=== PATIENT | male | born 1980 | race Caucasian/White ===

== ENCOUNTER 2016-10-17 12:45 | Emergency (ER) | payer SELFPAY ==
[~2016-10-17] VITALS: Ht 175.3 cm; Wt 80.0 kg
[2016-10-17 12:55] VITALS: BP 144/82; PULSE 78; RESP 15; TEMP 98.1; O2SAT 99
[2016-10-17] MEDS ORDERED: DEXAMETHASONE SOD PHOS 4 MG/ML VIAL IM ONE (13:15)
--- NOTE | 2016-10-17 13:19 | PD ---
HPI Chief Complaint: Pain: Acute or Chronic Time Seen by Provider: 13:15 Travel History International Travel<30 days: No Contact w/Intl Traveler<30days: No Traveled to known affect area: No History of Present Illness HPI Patient comes in complaining of right-sided low back pain that began 3 days ago while playing around on monkey bars. Patient denies any direct trauma, fevers, loss or change in bowel or bladder, numbness, or IV drug use. Patient has been using [id number] medicine as well as taking a friends pain pill for symptomatic relief. Pain is worse with certain movement. It radiates down his right lower extremity causing a tingling sensation from time to time. Pain is worse at night. PFSH Past Medical History Anxiety: Yes Depression: Yes Cancer: No Cardiovascular Problems: No Diabetes: No Diminished Hearing: No Endocrine: No Genitourinary: No Headaches: Yes Immune Disorder: No Musculoskeletal: No Neurologic: Yes Psychiatric: Yes Reproductive: No Respiratory: No Immunizations Current: Yes Migraines: Yes Past Surgical History Other Surgery: No Social History Alcohol Use: Yes (8 (16 oz beers daily).) Tobacco Use: Yes Substance Use: No (Denies) Allergies-Medications (Allergen,Severity, Reaction): Coded Allergies: Penicillin (Verified Allergy, Severe, Hives, 10/17/16) Codeine (Verified Adverse Reaction, Severe, N/V, 10/17/16) Reported Meds & Prescriptions Reported Meds & Active Scripts Active Robaxin (Methocarbamol) 500 Mg Tab 500 Mg PO Q8HR PRN Medrol Dosepak (Methylprednisolone) 4 Mg Dspk 4 Mg PO DIRECTED Per Pharmacist direction Review of Systems Except as stated in HPI: all other systems reviewed are Neg Physical Exam Narrative GENERAL: Well-developed, well nourished, in no acute distress, and non-ill appearing. SKIN: Warm and dry. HEAD: Atraumatic. Normocephalic. EYES: Pupils equal and round. EOMI. No scleral icterus. No injection or drainage. ENT: No nasal bleeding or discharge. Mucous membranes pink and moist. NECK: Trachea midline. Supple. No nuclear rigidity. RESPIRATORY: No accessory muscle use. No respiratory distress. GASTROINTESTINAL: Abdomen soft, non-tender, nondistended. Hepatic and splenic margins not palpable. No pulsatile mass. MUSCULOSKELETAL: No obvious deformities. No clubbing. No cyanosis. No edema. Full range of motion. No tenderness or crepitus or midline lumbar spine. Straight leg test negative bilaterally. NEUROLOGICAL: Awake and alert. No obvious cranial nerve deficits. Motor grossly within normal limits. Normal speech. PSYCHIATRIC: Appropriate mood and affect; insight and judgment normal. Data Data Last Documented VS Vital Signs Date Time Temp Pulse Resp B/P Pulse Ox O2 Delivery O2 Flow Rate FiO2 10/17/16 12:55 98.1 78 15 144/82 99 Orders Dexamethasone Inj (Decadron Inj) (10/17/16 13:15) [facility] Medical Decision Making Medical Screen Exam Complete: Yes Emergency Medical Condition: Yes Differential Diagnosis Fracture, strain, contusion, sciatica, other Narrative Course The patient presented complaining of back pain with radiation down leg. There was no history of recent fall or trauma. There was no evidence to support genitourinary etiology. There is also no evidence to suggest vascular pathology such as AAA dissection. No fevers or other evidence to suspect infectious processes, abscess, osteomyelitis etc. The patients neurological exam is normal with normal motor and sensory. There is no saddle paresthesias reported and no bowel or bladder incontinence or retention. I suspect the pain is mechanical in nature with sciatica. Clinical suspicion, plan of care and management was discussed with the patient. The patient was instructed to follow up with their health care provider. The patient was also instructed to return if the pain worsened, changed, or developed weakness or bowel or bladder trouble. The patient agreed with plan. Patient in no obvious distress upon re-evaluation. Patient was asked if they wanted to speak to my attending, which the patient did not wish to do at this time. Any questions/concerns in reference to patient diagnosis/condition discussed and clarified prior to patient's discharge. Reinforced sheer importance of close follow up with patient's primary physician or primary care clinic. Instructed patient to return to ED immediately, if symptoms return/ worsen. Pt showed understanding of above instructions. Further instructions and recommendations were detailed in discharge paperwork. Pt ambulated without difficulty out of ED at discharge. Diagnosis Primary Impression: Sciatica Qualified Code: M54.31 - Sciatica of right side Patient Instructions: General Instructions, Sciatica (ED) Additional Instructions: Follow-up with your primary care physician in 3-5 days for reevaluation. Take all medication as prescribed. Return to the emergency department if symptoms get worse. Med/Other Pt SpecificInfo: Prescription(s) given Scripts Methocarbamol (Robaxin)500 Mg [id number] Mg PO Q8HR PRN (MUSCLE PAIN) #10 TAB Ref 0 Prov:Freddie Hinkle MD 10/17/16 Methylprednisolone Dosepak (Medrol Dosepak)4 Mg Dspk4 Mg PO DIRECTED #1 DSPK Ref 0 Per Pharmacist direction Prov:Freddie Hinkle MD 10/17/16 Disposition: 01 DISCHARGE HOME Condition: Stable Vinny Tellez Oct 17, 2016 13:19
[2016-10-17] MEDS ORDERED: MEDR4PAK PO (13:20)
[2016-10-17] MEDS ORDERED: ROBA500T PO (13:20)
== END 2016-10-17 14:02 | disposition home or self-care (01) ==
LOC: NEPB 12:45
DX: M54.31 Sciatica, right side (principal); Z72.0 Tobacco use
CPT/HCPCS: 96372; 99283; J1100

== ENCOUNTER 2016-10-31 05:35 | Emergency (ER) | payer SELFPAY ==
[~2016-10-31] VITALS: Ht 177.8 cm; Wt 80.0 kg
[~2016-10-31 05:35] MED LIST: MEDR4PAK PO; ROBA500T PO
--- NOTE | 2016-10-31 05:44 | PD ---
HPI Chief Complaint: Alcohol/Drug Intoxication Time Seen by Provider: 05:40 Travel History International Travel<30 days: No Contact w/Intl Traveler<30days: No Traveled to known affect area: No History of Present Illness HPI 36-year-old male presents to the emergency department by EMS transport with police custody as a Flaherty act. Patient reportedly admits to to drinking alcohol smoking marijuana and taking ibuprofen. Patient complains repetitively of right lower extremity pain that has caused him to consume the above- mentioned substances. Patient reportedly complained to friends/companions that he wanted to harm himself. EMS was called the police Flaherty acted the patient but due to his belligerent and combative behavior EMS was called to transport the patient with restraints. No report of bystanders noting any injury or fall or head injury. No report of loss of consciousness. Please present with medicine bottles a containing [id number] melatonin and ibuprofen. PFSH Past Medical History Narrative Medical Anxiety depression sciatica migraines alcohol use tobacco use marijuana use nursing notes reviewed Anxiety: Yes Depression: Yes Cancer: No Cardiovascular Problems: No Diabetes: No Diminished Hearing: No Endocrine: No Genitourinary: No Headaches: Yes Immune Disorder: No Musculoskeletal: No Neurologic: Yes Psychiatric: Yes Reproductive: No Respiratory: No Immunizations Current: Yes Migraines: Yes Past Surgical History Other Surgery: No Social History Alcohol Use: Yes (8 (16 oz beers daily).) Tobacco Use: Yes Substance Use: No (Denies) Allergies-Medications (Allergen,Severity, Reaction): Coded Allergies: Penicillin (Verified Allergy, Severe, Hives, 10/31/16) Codeine (Verified Adverse Reaction, Severe, N/V, 10/31/16) Reported Meds & Prescriptions Reported Meds & Active Scripts Active Robaxin (Methocarbamol) 500 Mg Tab 500 Mg PO Q8HR PRN Medrol Dosepak (Methylprednisolone) 4 Mg Dspk 4 Mg PO DIRECTED Per Pharmacist direction Review of Systems ROS Limitations: Clinical Condition, Poor Historian Except as stated in HPI: all other systems reviewed are Neg Physical Exam Narrative GENERAL: Well-developed well-nourished male yelling and intermittently attempting to bite himself awake and alert and oriented to person place, GCS 15. SKIN: Warm and dry. HEAD: Atraumatic. Normocephalic. EYES: Pupils equal and round. No scleral icterus. No injection or drainage. ENT: No nasal bleeding or discharge. Mucous membranes pink and moist. NECK: Trachea midline. No JVD. CARDIOVASCULAR: Regular rate and rhythm. RESPIRATORY: No accessory muscle use. Clear to auscultation. Breath sounds equal bilaterally. GASTROINTESTINAL: Abdomen soft, non-tender, nondistended. Hepatic and splenic margins not palpable. MUSCULOSKELETAL: Extremities without clubbing, cyanosis, or edema. No obvious deformities. NEUROLOGICAL: Awake and alert. No obvious cranial nerve deficits. Motor grossly within normal limits. Five out of 5 muscle strength in the arms and legs. Normal speech. PSYCHIATRIC: Appropriate mood and affect; insight and judgment normal. Data Data Last Documented VS Vital Signs Date Time Temp Pulse Resp B/P Pulse Ox O2 Delivery O2 Flow Rate FiO2 10/31/16 07:17 89 16 124/54 99 Room Air 10/31/16 05:47 98.2 Orders Complete Blood Count With Diff (10/31/16 05:40) Comprehensive Metabolic Panel (10/31/16 05:40) Urinalysis - C+S If Indicated (10/31/16 05:40) Iv Access Insert/Monitor (10/31/16 05:40) Psych Screen (10/31/16 05:40) Drug Screen, Random Urine (10/31/16 05:40) Alcohol (Ethanol) (10/31/16 05:40) Salicylates (Aspirin) (10/31/16 05:40) Tylenol (Acetaminophen) (10/31/16 05:40) Magnesium (Mg) (10/31/16 05:40) Sodium Chlor 0.9% 1000 Ml Inj (Ns 1000 M (10/31/16 05:45) Lorazepam Inj (Ativan Inj) (10/31/16 06:00) Lorazepam Inj (Ativan Inj) (10/31/16 06:15) Restraints Non-Violent DAVID.Q3H (10/31/16 06:35) Labs Laboratory Tests Test 10/31/16 10/31/16 05:55 06:17 White Blood Count 11.5 TH/MM3 Red Blood Count 6.71 MIL/MM3 Hemoglobin 14.2 GM/DL Hematocrit 44.0 % Mean Corpuscular Volume 65.6 FL Mean Corpuscular Hemoglobin 21.2 PG Mean Corpuscular Hemoglobin 32.4 % Concent Red Cell Distribution Width 15.1 % Platelet Count 232 TH/MM3 Mean Platelet Volume 9.9 FL Neutrophils (%) (Auto) 67.4 % Lymphocytes (%) (Auto) 24.1 % Monocytes (%) (Auto) 5.2 % Eosinophils (%) (Auto) 2.2 % Basophils (%) (Auto) 1.1 % Neutrophils # (Auto) 7.8 TH/MM3 Lymphocytes # (Auto) 2.8 TH/MM3 Monocytes # (Auto) 0.6 TH/MM3 Eosinophils # (Auto) 0.2 TH/MM3 Basophils # (Auto) 0.1 TH/MM3 CBC Comment AUTO DIFF Differential Comment AUTO DIFF CONFIRMED Platelet Estimate NORMAL Platelet Morphology Comment ENLARGED Ovalocytes 1+ Sodium Level 144 MEQ/L Potassium Level 4.3 MEQ/L Chloride Level 109 MEQ/L Carbon Dioxide Level 20.5 MEQ/L Anion Gap 15 MEQ/L Blood Urea Nitrogen 13 MG/DL Creatinine 1.15 MG/DL Estimat Glomerular Filtration 73 ML/MIN Rate Random Glucose 95 MG/DL Calcium Level 8.9 MG/DL Magnesium Level 2.2 MG/DL Total Bilirubin 0.2 MG/DL Aspartate Amino Transf 31 U/L (AST/SGOT) Alanine Aminotransferase 40 U/L (ALT/SGPT) Alkaline Phosphatase 69 U/L Total Protein 7.6 GM/DL Albumin 4.0 GM/DL Salicylates Level LESS THAN 1.7 MG/DL Acetaminophen Level LESS THAN 2.0 MCG/ML Ethyl Alcohol Level 325 MG/DL Urine Opiates Screen NEG Urine Barbiturates Screen NEG Urine Amphetamines Screen NEG Urine Benzodiazepines Screen NEG Urine Cocaine Screen NEG Urine Cannabinoids Screen NEG MDM Medical Decision Making Medical Screen Exam Complete: Yes Emergency Medical Condition: Yes Medical Record Reviewed: Yes Interpretation(s) CBC & BMP Diagram 10/31/16 05:55 Vital Signs Date Time Temp Pulse Resp B/P Pulse Ox O2 Delivery O2 Flow Rate FiO2 10/31/16 05:47 98.2 98 18 126/74 99 Room Air UDS: negative Acetaminophen and salicylate levels: Not elevated a, elevated Differential Diagnosis Alcohol intoxication, polysubstance ingestion, suicidal ideation Narrative Course IV access obtained specimens collected and sent for resulting patient administered IV fluid bolus and Ativan 1 mg for agitation medically cleared; will sleep off alcohol intoxication Diagnosis Primary Impression: Drug-induced mood disorder Additional Impressions: Suicidal ideation Alcohol intoxication Qualified Code: F10.120 - Alcohol intoxication, uncomplicated Kristen Roque MD Oct 31, 2016 05:44
[2016-10-31] MEDS ORDERED: SODIUM CHLOR 0.9% 1000 ML INJ 1,000 ML IV ONE (05:45)
[2016-10-31 05:47] VITALS: BP 126/74; PULSE 98; RESP 18; TEMP 98.2; O2SAT 99
[2016-10-31] MEDS ORDERED: LORazepam 2 MG/ML VIAL IM ONE (06:00)
[2016-10-31] MEDS ORDERED: LORazepam 2 MG/ML VIAL IV PUSH ONE (06:15)
[2016-10-31 06:25] LABS: AUTOMATED NEUTROPHIL # 7.8 TH/MM3 (1.8-7.7); BASOPHIL # 0.1 TH/MM3 (0-0.2); BASOPHIL % 1.1 % (0.0-2.0); EOSINOPHIL # 0.2 TH/MM3 (0-0.4); EOSINOPHIL % 2.2 % (0.0-4.0); LYMPH % 24.1 % (9.0-44.0); LYMPHOCYTE # 2.8 TH/MM3 (1.0-4.8); MEAN CELL VOLUME 65.6 FL (80.0-100.0); MEAN CORPUSCULAR HEMOGLOBIN 21.2 PG (27.0-34.0); MEAN CORPUSCULAR HGB CONC 32.4 % (32.0-36.0); MONO % 5.2 % (0.0-8.0); NEUT % 67.4 % (16.0-70.0); PLATELET COUNT 232 TH/MM3 (150-450); RED BLOOD COUNT 6.71 MIL/MM3 (4.50-5.90); RED CELL DISTRIBUTION WIDTH 15.1 % (11.6-17.2); WHITE BLOOD COUNT 11.5 TH/MM3 (4.0-11.0)
[2016-10-31 06:36] LABS: HEMO FLAGS AUTO DIFF
[2016-10-31 06:47] LABS: AMPHETAMINE, URINE NEG (NEG); BARBITURATES, URINE NEG (NEG); COCAINE, URINE NEG (NEG)
[2016-10-31 06:52] LABS: ALKALINE PHOSPHATASE 69 U/L (45-117); TOTAL BILIRUBIN ADULT 0.2 MG/DL (0.2-1.0)
[2016-10-31 06:54] LABS: ALT (GPT) 40 U/L (12-78); ANION GAP 15 MEQ/L (5-15); AST (GOT) 31 U/L (15-37); BICARBONATE 20.5 MEQ/L (21.0-32.0); BLOOD UREA NITROGEN 13 MG/DL (7-18); CHLORIDE 109 MEQ/L (98-107); GLOMERULAR FILTRATION RATE 73 ML/MIN (>89); MAGNESIUM 2.2 MG/DL (1.5-2.5); POTASSIUM 4.3 MEQ/L (3.5-5.1); SODIUM (NA) 144 MEQ/L (136-145)
[2016-10-31 06:56] LABS: ACETAMINOPHEN LESS THAN 2.0 MCG/ML (10.0-30.0)
[2016-10-31 07:17] VITALS: BP 124/54; PULSE 89; RESP 16; O2SAT 99
[2016-10-31 07:24] LABS: OVALOCYTES 1+ (NORMAL); PLATELET ESTIMATE SMEAR NORMAL (NORMAL); PLATELET MORPHOLOGY ENLARGED (NORMAL); SCAN/DIFF AUTO DIFF CONFIRMED
[2016-10-31 07:53] LABS: BACTERIA, URINE RARE /hpf; BLOOD, URINE NEG (NEG); COMMENT (UR) CULT NOT INDICATED; CULTURE IF INDICATED CULT NOT INDICATED; GLUCOSE,URINE NEG (NEG); KETONE, URINE NEG (NEG); NITRITE,URINE NEG (NEG); PH, URINE 5.5 (5.0-8.5); SQUAMOUS EPITHELIAL CELL URINE <1 /hpf (0-5); URINE COLOR COLORLESS (YELLW/STRAW)
[2016-10-31 08:45] VITALS: BP 115/58; PULSE 86; RESP 14; O2SAT 96
[2016-10-31 11:09] VITALS: BP 138/64; PULSE 106; RESP 20; TEMP 98.6; O2SAT 96
[2016-10-31] MEDS ORDERED: ACETAMINOPHEN 500 MG CPLT PO ONE (12:45)
[2016-10-31 14:34] VITALS: BP 109/56; PULSE 87; RESP 18; TEMP 99.1; O2SAT 97
== END 2016-10-31 21:00 ==
LOC: NEPC 05:35 → NEPJ 21:00
DX: F19.94 Other psychoactive substance use, unspecified with psychoactive substance-induced mood disorder (principal); R45.851 Suicidal ideations; F10.129 Alcohol abuse with intoxication, unspecified; Y90.8 Blood alcohol level of 240 mg/100 ml or more; Z72.0 Tobacco use
CPT/HCPCS: 80053; 80307; 81001; 83735; 85025; 96361; 96374; 99285; J2060; J7030

== ENCOUNTER 2016-11-13 21:09 | Emergency (ER) | payer OTHER ==
[~2016-11-13] VITALS: Ht 177.8 cm; Wt 85.0 kg
[2016-11-13] MEDS ORDERED: LEXA20TA PO (21:34)
[2016-11-13] MEDS ORDERED: MIRTA15 PO (21:34)
[2016-11-13] MEDS ORDERED: GABA300C5 PO (21:35)
[2016-11-13 21:43] VITALS: BP 120/69; PULSE 79; RESP 18; TEMP 98; O2SAT 97
--- NOTE | 2016-11-13 21:47 | PD ---
HPI Chief Complaint: OD/ Ingestion Time Seen by Provider: 21:35 Travel History International Travel<30 days: No Contact w/Intl Traveler<30days: No Traveled to known affect area: No History of Present Illness HPI 36-year-old male with a history of depression is brought to the emergency department under Flaherty act for suicidal ideations. Per the Flaherty act report the patient told PD that he wanted to kill himself and that he had contemplated taking all of his pills. The patient admits to suicidal ideations. States that he is very depressed and feels that he is very unhappy with his . He denies any attempts to harm himself. Denies any ingestion of substances in an attempt to harm himself. Denies any fever, chills, nausea, vomiting, chest pain , shortness of breath, abdominal pain. He does complain of a headache at this time. Admits to drinking about 7 beers today. States that he smoked marijuana today. Denies any other drug use. No other complaints. PFSH Past Medical History Anxiety: Yes Depression: Yes Cancer: No Cardiovascular Problems: No Diabetes: No Diminished Hearing: No Endocrine: No Genitourinary: No Headaches: Yes Immune Disorder: No Musculoskeletal: No Neurologic: Yes Psychiatric: Yes Reproductive: No Respiratory: No Immunizations Current: Yes Migraines: Yes Past Surgical History Other Surgery: No Social History Alcohol Use: Yes (8 (16 oz beers daily).) Tobacco Use: Yes Substance Use: Yes Allergies-Medications (Allergen,Severity, Reaction): Coded Allergies: Penicillin (Verified Allergy, Severe, Hives, 11/13/16) Codeine (Verified Adverse Reaction, Severe, N/V, 11/13/16) Reported Meds & Prescriptions Reported Meds & Active Scripts Active Reported Gabapentin 300 Mg Cap 300 Mg PO BID Lexapro (Escitalopram Oxalate) 20 Mg Tab 20 Mg PO DAILY Mirtazapine 15 Mg Tab 15 Mg PO HS Review of Systems Except as stated in HPI: all other systems reviewed are Neg Physical Exam Narrative GENERAL: Well-nourished and well-developed male patient in no acute distress who is nontoxic appearing. SKIN: Warm and dry. HEAD: Normocephalic and atraumatic. EYES: No injection, drainage, or hyphema noted. PERRLA. EOMI. ENT: No nasal drainage noted. Oropharynx is clear. NECK: Supple and the trachea is midline. CARDIOVASCULAR: Regular rate and rhythm. RESPIRATORY: Breath sounds are equal bilaterally with no accessory muscle use, wheezing, rhonchi, or crackles. GASTROINTESTINAL: Abdomen is soft, non-tender, and nondistended. MUSCULOSKELETAL: No obvious deformities, swelling, cyanosis, or ecchymosis is present throughout the upper and lower extremities. Patient has full range of motion without any signs of neurovascular compromise. NEUROLOGICAL: Awake, alert, and oriented. Normal speech and gait. Cranial nerves are grossly intact. Data Data Last Documented VS Vital Signs Date Time Temp Pulse Resp B/P Pulse Ox O2 Delivery O2 Flow Rate FiO2 11/13/16 21:43 98.0 79 18 120/69 97 Room Air Orders Complete Blood Count With Diff (11/13/16 21:26) Comprehensive Metabolic Panel (11/13/16 21:26) Psych Screen (11/13/16 21:26) Drug Screen, Random Urine (11/13/16 21:26) Alcohol (Ethanol) (11/13/16 21:26) Salicylates (Aspirin) (11/13/16 21:35) Electrocardiogram (11/13/16 21:50) Tylenol (Acetaminophen) (11/13/16 21:30) Labs Laboratory Tests Test 11/13/16 21:30 White Blood Count 7.4 TH/MM3 Red Blood Count 5.94 MIL/MM3 Hemoglobin 12.6 GM/DL Hematocrit 39.2 % Mean Corpuscular Volume 65.9 FL Mean Corpuscular Hemoglobin 21.1 PG Mean Corpuscular Hemoglobin 32.1 % Concent Red Cell Distribution Width 14.5 % Platelet Count 193 TH/MM3 Mean Platelet Volume 9.3 FL Neutrophils (%) (Auto) 59.0 % Lymphocytes (%) (Auto) 29.3 % Monocytes (%) (Auto) 10.1 % Eosinophils (%) (Auto) 1.1 % Basophils (%) (Auto) 0.5 % Neutrophils # (Auto) 4.4 TH/MM3 Lymphocytes # (Auto) 2.2 TH/MM3 Monocytes # (Auto) 0.7 TH/MM3 Eosinophils # (Auto) 0.1 TH/MM3 Basophils # (Auto) 0.0 TH/MM3 CBC Comment AUTO DIFF Sodium Level 139 MEQ/L Potassium Level 3.6 MEQ/L Chloride Level 105 MEQ/L Carbon Dioxide Level 25.4 MEQ/L Anion Gap 9 MEQ/L Blood Urea Nitrogen 14 MG/DL Creatinine 0.79 MG/DL Estimat Glomerular Filtration 112 ML/MIN Rate Random Glucose 132 MG/DL Calcium Level 7.8 MG/DL Total Bilirubin 0.3 MG/DL Aspartate Amino Transf 22 U/L (AST/SGOT) Alanine Aminotransferase 72 U/L (ALT/SGPT) Alkaline Phosphatase 82 U/L Total Protein 7.0 GM/DL Albumin 3.3 GM/DL Salicylates Level LESS THAN 1.7 MG/DL Urine Opiates Screen NEG Acetaminophen Level LESS THAN 2.0 MCG/ML Urine Barbiturates Screen NEG Urine Amphetamines Screen NEG Urine Benzodiazepines Screen NEG Urine Cocaine Screen NEG Urine Cannabinoids Screen POS Ethyl Alcohol Level 74 MG/DL MDM Medical Decision Making Medical Screen Exam Complete: Yes Emergency Medical Condition: Yes Differential Diagnosis Differential: Depression versus adjustment reaction versus anxiety versus PTSD versus psychosis NOS versus mood disorder NOS versus substance induced mood disorder versus ODD versus adjustment reaction versus schizophrenia versus bipolar disorder versus schizoaffective versus electrolyte abnormality versus dementia versus malingering. Narrative Course Patient presents under a Flaherty act. Physical examination and vital signs are essentially unremarkable. Patient complains of mild headache. EKG shows sinus rhythm with no acute ST elevations or depressions, short QT. No change from prior EKG. Reviewed and discussed with my attending physician Dr. Theodore. Psych screen has been ordered. Labs are unremarkable for any acute abnormalities. Urine tox is positive for cannabinoids. EtOH is 74. The patient is medically cleared for psychiatric evaluation and disposition. Diagnosis Primary Impression: Substance induced mood disorder Lida Orlando Nov 13, 2016 21:47
[2016-11-13 22:04] LABS: AUTOMATED NEUTROPHIL # 4.4 TH/MM3 (1.8-7.7); BASOPHIL % 0.5 % (0.0-2.0); EOSINOPHIL # 0.1 TH/MM3 (0-0.4); EOSINOPHIL % 1.1 % (0.0-4.0); HEMATOCRIT 39.2 % (39.0-51.0); LYMPH % 29.3 % (9.0-44.0); LYMPHOCYTE # 2.2 TH/MM3 (1.0-4.8); MEAN CELL VOLUME 65.9 FL (80.0-100.0); MEAN CORPUSCULAR HEMOGLOBIN 21.1 PG (27.0-34.0); MEAN CORPUSCULAR HGB CONC 32.1 % (32.0-36.0); MONO % 10.1 % (0.0-8.0); PLATELET COUNT 193 TH/MM3 (150-450); RED BLOOD COUNT 5.94 MIL/MM3 (4.50-5.90); RED CELL DISTRIBUTION WIDTH 14.5 % (11.6-17.2); WHITE BLOOD COUNT 7.4 TH/MM3 (4.0-11.0)
[2016-11-13 22:06] LABS: HEMO FLAGS AUTO DIFF
[2016-11-13 22:13] LABS: AMPHETAMINE, URINE NEG (NEG); BARBITURATES, URINE NEG (NEG); COCAINE, URINE NEG (NEG)
[2016-11-13 22:18] LABS: ANION GAP 9 MEQ/L (5-15); AST (GOT) 22 U/L (15-37); BICARBONATE 25.4 MEQ/L (21.0-32.0); BLOOD UREA NITROGEN 14 MG/DL (7-18); CHLORIDE 105 MEQ/L (98-107); GLOMERULAR FILTRATION RATE 112 ML/MIN (>89); POTASSIUM 3.6 MEQ/L (3.5-5.1); SODIUM (NA) 139 MEQ/L (136-145)
[2016-11-13 22:21] LABS: ACETAMINOPHEN LESS THAN 2.0 MCG/ML (10.0-30.0); ALKALINE PHOSPHATASE 82 U/L (45-117); ALT (GPT) 72 U/L (12-78); TOTAL BILIRUBIN ADULT 0.3 MG/DL (0.2-1.0)
[2016-11-13] MEDS ORDERED: ACETAMINOPHEN 500 MG CPLT PO ONE (22:30)
[2016-11-13 22:45] LABS: PLATELET ESTIMATE SMEAR NORMAL (NORMAL); PLATELET MORPHOLOGY NORMAL (NORMAL); SCAN/DIFF AUTO DIFF CONFIRMED
[2016-11-13 22:49] VITALS: BP 109/58; PULSE 79; RESP 18; O2SAT 100
[2016-11-13 23:24] VITALS: BP 133/68; PULSE 85; RESP 17; O2SAT 95
[2016-11-14 01:58] VITALS: BP 139/76; PULSE 71; RESP 17; O2SAT 99
[2016-11-14 06:41] VITALS: BP 90/60; PULSE 65; RESP 18; TEMP 97.6; O2SAT 97
[2016-11-14 11:16] VITALS: BP 121/67; PULSE 62; RESP 18; O2SAT 98
[2016-11-14 11:28] VITALS: BP 121/67; PULSE 62; RESP 18; O2SAT 98
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
--- NOTE | 2016-11-14 14:09 | EKG ---
Date Performed: 11/13/2016 Time Performed: 21:24:06 PTAGE: 36 years EKG: Sinus rhythm POSSIBLE LEFT ATRIAL ENLARGEMENT Similar to prior ekg there is fairly diffuse ST elevation. Overall, likely no significant change from prior tracing. Consider pericarditis in the appropriate clinical s etting. PREVIOUS TRACING : 05/19/2016 03.38 DOCTOR: Paul Finney Interpretating Date/Time 11/14/2016 14:07:35
[2016-11-14 18:19] VITALS: BP 129/71; PULSE 72; RESP 20; TEMP 97.8; O2SAT 98
== END 2016-11-14 18:49 ==
LOC: NEPC 21:09 → NEPJ 11-14 18:49
DX: F19.14 Other psychoactive substance abuse with psychoactive substance-induced mood disorder (principal); F32.9 Major depressive disorder, single episode, unspecified; F10.10 Alcohol abuse, uncomplicated; R51 Headache; F12.90 Cannabis use, unspecified, uncomplicated; Z72.0 Tobacco use
CPT/HCPCS: 80053; 80307; 85025; 93005

== ENCOUNTER 2016-11-24 03:32 | Emergency (ER) | payer SELFPAY ==
[~2016-11-24] VITALS: Ht 182.9 cm; Wt 80.0 kg
[~2016-11-24 03:32] MED LIST changes: +GABA300C5 PO; +LEXA20TA PO; -MEDR4PAK PO; +MIRTA15 PO; -ROBA500T PO
[2016-11-24 03:37] VITALS: BP 117/59; PULSE 95; RESP 18; TEMP 97.5; O2SAT 96
[2016-11-24] MEDS ORDERED: ARIP1TAB5 PO (03:52)
[2016-11-24] MEDS ORDERED: VENL75TA PO (04:16)
[2016-11-24 04:24] LABS: AUTOMATED NEUTROPHIL # 8.7 TH/MM3 (1.8-7.7); BASOPHIL # 0.1 TH/MM3 (0-0.2); BASOPHIL % 0.7 % (0.0-2.0); EOSINOPHIL # 0.2 TH/MM3 (0-0.4); EOSINOPHIL % 1.3 % (0.0-4.0); LYMPH % 18.4 % (9.0-44.0); LYMPHOCYTE # 2.3 TH/MM3 (1.0-4.8); MEAN CELL VOLUME 65.3 FL (80.0-100.0); MEAN CORPUSCULAR HEMOGLOBIN 20.2 PG (27.0-34.0); MONO % 10.6 % (0.0-8.0); PLATELET COUNT 227 TH/MM3 (150-450); RED BLOOD COUNT 5.67 MIL/MM3 (4.50-5.90); WHITE BLOOD COUNT 12.7 TH/MM3 (4.0-11.0)
[2016-11-24 04:26] LABS: HEMO FLAGS AUTO DIFF
[2016-11-24 04:35] LABS: ANION GAP 11 MEQ/L (5-15); AST (GOT) 95 U/L (15-37); BICARBONATE 23.5 MEQ/L (21.0-32.0); BLOOD UREA NITROGEN 9 MG/DL (7-18); CHLORIDE 108 MEQ/L (98-107); GLOMERULAR FILTRATION RATE 102 ML/MIN (>89); POTASSIUM 3.7 MEQ/L (3.5-5.1); SODIUM (NA) 142 MEQ/L (136-145)
[2016-11-24 04:38] LABS: ACETAMINOPHEN LESS THAN 2.0 MCG/ML (10.0-30.0); ALKALINE PHOSPHATASE 72 U/L (45-117); ALT (GPT) 44 U/L (12-78); TOTAL BILIRUBIN ADULT 0.5 MG/DL (0.2-1.0)
--- NOTE | 2016-11-24 04:47 | PD ---
HPI Chief Complaint: Psychiatric Symptoms Time Seen by Provider: 03:40 Travel History International Travel<30 days: No Contact w/Intl Traveler<30days: No Traveled to known affect area: No History of Present Illness HPI 36-year-old male arrives by EMS. He was drinking alcohol tonight in [facility]. He approached the Police and verbalized suicidal ideation including intent to jump in front of a car and thoughts of jumping off a bridge and feeling down for a while. + ETOH. Location neuropsychiatric. Onset gradual. PFSH Past Medical History Anxiety: Yes Depression: Yes Cancer: No Cardiovascular Problems: No Diabetes: No Diminished Hearing: No Endocrine: No Genitourinary: No Headaches: Yes Immune Disorder: No Musculoskeletal: No Neurologic: Yes Psychiatric: Yes Reproductive: No Respiratory: No Immunizations Current: Yes Migraines: Yes Past Surgical History Other Surgery: No Social History Alcohol Use: Yes (8 (16 oz beers daily).) Tobacco Use: Yes Substance Use: Yes Allergies-Medications (Allergen,Severity, Reaction): Coded Allergies: Penicillin (Verified Allergy, Severe, Hives, 11/24/16) Codeine (Verified Adverse Reaction, Severe, N/V, 11/24/16) Reported Meds & Prescriptions Reported Meds & Active Scripts Active Reported Effexor (Venlafaxine HCl) 75 Mg Tab 75 Mg PO DAILY Abilify (Aripiprazole) 10 Mg Tab 10 Mg PO DAILY Mirtazapine 15 Mg Tab 15 Mg PO HS Review of Systems Except as stated in HPI: all other systems reviewed are Neg Physical Exam Narrative GENERAL: 36 yo M, WNWD, EtOH on breath SKIN: Warm and dry. HEAD: Atraumatic. Normocephalic. EYES: Pupils equal and round. No scleral icterus. No injection or drainage. ENT: No nasal bleeding or discharge. Mucous membranes pink and moist. NECK: Trachea midline. No JVD. CARDIOVASCULAR: Regular rate and rhythm. RESPIRATORY: No accessory muscle use. Clear to auscultation. Breath sounds equal bilaterally. GASTROINTESTINAL: Abdomen soft, non-tender, nondistended. Hepatic and splenic margins not palpable. MUSCULOSKELETAL: Extremities without clubbing, cyanosis, or edema. No obvious deformities. NEUROLOGICAL: Awake and alert. No obvious cranial nerve deficits. Motor grossly within normal limits. Five out of 5 muscle strength in the arms and legs. Normal speech. PSYCHIATRIC: + SI. NO HI. Data Data Last Documented VS Vital Signs Date Time Temp Pulse Resp B/P Pulse Ox O2 Delivery O2 Flow Rate FiO2 11/24/16 06:20 106 18 115/55 100 11/24/16 03:37 97.5 VS reviewed Orders Complete Blood Count With Diff (11/24/16 03:40) Comprehensive Metabolic Panel (11/24/16 03:40) Psych Screen (11/24/16 03:40) Drug Screen, Random Urine (11/24/16 03:40) Alcohol (Ethanol) (11/24/16 03:40) Salicylates (Aspirin) (11/24/16 03:40) Tylenol (Acetaminophen) (11/24/16 03:40) Labs Laboratory Tests Test 11/24/16 11/24/16 03:55 06:25 White Blood Count 12.7 TH/MM3 Red Blood Count 5.67 MIL/MM3 Hemoglobin 11.5 GM/DL Hematocrit 37.0 % Mean Corpuscular Volume 65.3 FL Mean Corpuscular Hemoglobin 20.2 PG Mean Corpuscular Hemoglobin 31.0 % Concent Red Cell Distribution Width 15.0 % Platelet Count 227 TH/MM3 Mean Platelet Volume 9.2 FL Neutrophils (%) (Auto) 69.0 % Lymphocytes (%) (Auto) 18.4 % Monocytes (%) (Auto) 10.6 % Eosinophils (%) (Auto) 1.3 % Basophils (%) (Auto) 0.7 % Neutrophils # (Auto) 8.7 TH/MM3 Lymphocytes # (Auto) 2.3 TH/MM3 Monocytes # (Auto) 1.3 TH/MM3 Eosinophils # (Auto) 0.2 TH/MM3 Basophils # (Auto) 0.1 TH/MM3 CBC Comment AUTO DIFF Differential Comment AUTO DIFF CONFIRMED Target Cells 1+ Ovalocytes 2+ Sodium Level 142 MEQ/L Potassium Level 3.7 MEQ/L Chloride Level 108 MEQ/L Carbon Dioxide Level 23.5 MEQ/L Anion Gap 11 MEQ/L Blood Urea Nitrogen 9 MG/DL Creatinine 0.86 MG/DL Estimat Glomerular Filtration 102 ML/MIN Rate Random Glucose 103 MG/DL Calcium Level 8.5 MG/DL Total Bilirubin 0.5 MG/DL Aspartate Amino Transf 95 U/L (AST/SGOT) Alanine Aminotransferase 44 U/L (ALT/SGPT) Alkaline Phosphatase 72 U/L Total Protein 6.8 GM/DL Albumin 3.6 GM/DL Salicylates Level LESS THAN 1.7 MG/DL Acetaminophen Level LESS THAN 2.0 MCG/ML Ethyl Alcohol Level 175 MG/DL Urine Opiates Screen NEG Urine Barbiturates Screen NEG Urine Amphetamines Screen NEG Urine Benzodiazepines Screen NEG Urine Cocaine Screen POS Urine Cannabinoids Screen POS MDM Medical Decision Making Medical Screen Exam Complete: Yes Emergency Medical Condition: Yes Medical Record Reviewed: Yes Differential Diagnosis Altered mental status/psychosis due to infection/environmental exposure/ metabolic abnormality, polypharmacy, alcohol abuse/intoxication, illicit or prescribed drug abuse, malingering/secondary gain, non-organic psychiatric disease Narrative Course CBC & BMP Diagram 11/24/16 03:55 LFTs normal EtOH 175 APAP < 2.0 Salicylates 1.7 UTOX: Marijuana and cocaine positive The patient is resting comfortably and feels better, is alert and in no distress. The patients results and examination findings were discussed. The repeat examination is unremarkable and benign. The history, exam, diagnostic testing, and current condition do not suggest any significant pathology to warrant further testing, continued ED treatment, admission, or surgical evaluation at this point. The vital signs have been stable. The patient does not have uncontrollable pain, intractable vomiting, or other significant symptoms. The patient's condition is stable and appropriate for discharge. The patient will pursue further outpatient evaluation with a primary care physician or other designated or consulting physician as indicated in the discharge instructions. The patient expressed understanding and was agreeable with this plan. Diagnosis Primary Impression: Suicidal ideation Additional Impression: Alcohol abuse Paulie Cid MD Nov 24, 2016 04:47
[2016-11-24 04:52] LABS: OVALOCYTES 2+ (NORMAL); SCAN/DIFF AUTO DIFF CONFIRMED; TARGET CELLS 1+ (NORMAL)
[2016-11-24 06:20] VITALS: BP 115/55; PULSE 106; RESP 18; O2SAT 100
[2016-11-24 06:51] LABS: AMPHETAMINE, URINE NEG (NEG); BARBITURATES, URINE NEG (NEG); COCAINE, URINE POS (NEG)
[2016-11-24] MEDS ORDERED: ACETAMINOPHEN 325 MG TAB PO ONE (10:00)
[2016-11-24] MEDS ORDERED: LORazepam 2 MG TAB PO PRN (11:00)
[2016-11-24] MEDS ORDERED: FLUMAZENIL 0.5 MG/5 ML VIAL IV PUSH PRN (11:00)
[2016-11-24] MEDS ORDERED: LORazepam 2 MG/ML VIAL IV PUSH PRN ×4 (11:00)
[2016-11-24] MEDS ORDERED: LORazepam 1 MG TAB PO PRN (11:00)
[2016-11-24 12:30] VITALS: BP 107/59; PULSE 99; RESP 18; TEMP 99; O2SAT 96
[2016-11-24 14:54] VITALS: BP 109/51; PULSE 80; RESP 16; TEMP 97.2; O2SAT 97
[2016-11-25 02:58] VITALS: BP 139/85; PULSE 89; RESP 18; O2SAT 97
[2016-11-25 05:52] VITALS: BP 142/85; PULSE 69; RESP 18; TEMP 97.4; O2SAT 98
[2016-11-25 06:32] VITALS: BP_SYST 134; BP_SYST 99; BP_DIAS 54; BP_DIAS 62; PULSE 81; PULSE 82; RESP 17; RESP 18; O2SAT 98
--- NOTE | 2016-11-25 12:40 | MB ---
cc: HAYDER ROBINS DATE OF CONSULTATION 11/25/2016 PHYSICIAN REQUESTING CONSULTATION Emergency Department. REASON FOR CONSULTATION Fla[place] Act. HISTORY OF PRESENT ILLNESS Mr. Still is a 36-year-old male with a history of substance use issues who presents under a Flaherty Act by law enforcement alleging that the patient consumed an unknown amount of antidepressants mixed with alcohol and was willing to cut himself to prove that he wanted to end his life. The patient told the psychiatric screener that he was at a nightclub and got drunk and needed a police escort home and so he fabricated the threats in the Flaherty Act in order to facilitate this. The patient's urine toxicology on presentation here was positive for cocaine and cannabinoids and his alcohol level was 175. Reviewing the electronic medical record, I see the patient has multiple prior ED visits for substance use issues. I see that he was seen most recently by nurse practitioner Mustapha on November 13 of this year. At that time he was threatening suicide in the context of the substance use and nurse practitioner Mustapha was suspecting malingering in that case. The patient is seen and examined. Chart reviewed. Case discussed with nurse in the [facility]. There has been no evidence of any suicidality or homicidality while under observation in the [facility]. On my examination today, the patient is clinically sober. He denies any suicidal or homicidal ideation, intent or plan at this time. He reiterates the narrative he provided to the screener that he was just trying to get the police to give him a ride home from the club and, in his intoxicated state, the threats he made seemed the most expeditious method to achieve this goal. He denies any audiovisual hallucinations. I can elicit no delusional beliefs. He reports that his mood is stable and I can elicit no depressive or hypomanic/manic symptoms. He is future-oriented and in particular is looking forward to getting his own room in the house that he rents from a friend. He notes that he is currently sleeping on the porch there. The remainder of the psychiatric ROS is negative. The patient is requesting discharge from the psychiatric emergency room this morning. PAST PSYCHIATRIC HISTORY The patient denies a history of psychiatric diagnosis other than substance use. He is not currently under the care of a psychiatrist. He says that he was sent to [facility] about a week ago after a fight with his girlfriend. Perhaps this is the corresponding admission from Nurse Practitioners Mustapha' encounter. He reports one prior suicide attempt by overdose on hypnotics and alcohol about five years ago. FAMILY HISTORY He reports that his mother has bipolar disorder and has attempted suicide five times. He reports that "everyone" in his family has drug problems. The patient denies any other family psychiatric history. CHEMICAL DEPENDENCY HISTORY The patient is a daily drinker. His longest sober time is on the order of days, typically while hospitalized. He endorses a history of blackouts. He denies any DTs or seizures. He occasionally uses crack cocaine and cannabis. SOCIAL HISTORY The patient lives with a friend. He has a girlfriend who lives in a senior living facility. He has a ninth grade education. He is single with no children. Denies any or active legal issues. Denies any access to guns or firearms. He is Sikh. PAST MEDICAL HISTORY The patient denies any medical issues. REVIEW OF SYSTEMS No reported headache, vision or hearing changes, chest pain, shortness of breath, bowel or bladder issues. No other physical complaints. PHYSICAL EXAMINATION VITAL SIGNS: Temperature is 97.4, pulse 81, respirations 17, blood pressure 134/62, pulse oximetry 98% on room air. Physical examination was completed by the ED provider and the patient was medically cleared. On my examination today, the patient appears to be in no acute physical distress. No signs of withdrawal noted. No motoric abnormalities noted. LABORATORIES REVIEWED CBC significant for a white blood cell count of 12.7 and hemoglobin of 11.5. CMP is unremarkable except for mild transaminitis. Toxicological results as above. MENTAL STATUS EXAM The patient is in hospital gown. He is fairly well-groomed and maintaining basic hygiene. He is awake, alert and oriented x 3. No motor abnormalities noted. Speech is with no evidence of delirium. Speech is within normal limits for rate, tone and volume. Language and fund of knowledge seem average. Mood is fair and affect is full and reactive. Thought process linear. No loosening of associations. No evident delusions. Denies audiovisual hallucinations. Denies suicidal or homicidal ideation. Insight and judgment are fair to poor at best, poor with regards to his substance use issues. ASSESSMENT/PLAN 1. Polysubstance intoxication, now resolved, with underlying polysubstance dependence, F19.220. This is a 36-year-old male with psychiatric history as detailed above who presents under a Flaherty ACT. The patient apparently made some statements that he might hurt himself to law enforcement while intoxicated. However, now that he is clinically sober, the patient has told the psychiatric screener and myself that he was just trying to get a safety escort home because he almost fell into traffic when he tried to walk home because he was so intoxicated. The patient presently denies suicidal or homicidal ideation. I can detect no unstable mood, anxiety or psychotic disorder in this patient at this time. He appears to be attending to his basic needs. Putting all of this information together, I application development team lead the patient does not presently meet Flaherty Act criteria. I have lifted the Flaherty Act. I have strongly recommended that the patient pursue chemical dependency evaluation and treatment. I have recommended that he allow us to place him into some sort of chemical dependency treatment program but he says he wishes to pursue this on an outpatient basis. We will provide referrals. I have counseled the patient regarding warning signs for need to return to the psychiatric emergency room as part of a general safety plan. The patient is otherwise psychiatrically cleared for discharge from the ED. Thank you very much for this consultation. Hayder Robins DC/MEÑO /7:51 AM /12:28 PM DAVEY
== END 2016-11-25 08:58 | disposition home or self-care (01) ==
LOC: NEPC 03:32 → NEPJ 11-25 08:58
DX: R45.851 Suicidal ideations (principal); F10.10 Alcohol abuse, uncomplicated; F12.129 Cannabis abuse with intoxication, unspecified; Y90.6 Blood alcohol level of 120-199 mg/100 ml; Z72.0 Tobacco use
CPT/HCPCS: 80053; 80307; 85025; 99285

== ENCOUNTER 2017-02-19 21:06 | Emergency (ER) | payer OTHER ==
[~2017-02-19] VITALS: Ht 175.3 cm; Wt 80.0 kg
[~2017-02-19 21:06] MED LIST changes: +ARIP1TAB5 PO; -GABA300C5 PO; -LEXA20TA PO; +VENL75TA PO
--- NOTE | 2017-02-19 21:29 | PD ---
HPI Chief Complaint: Psychiatric Symptoms Time Seen by Provider: 21:23 Travel History International Travel<30 days: No Contact w/Intl Traveler<30days: No Traveled to known affect area: No History of Present Illness HPI This patient is brought in under police Flaherty act. He admits to having suicidal ideation. He is drinking alcohol today. He also smokes marijuana. He denies IV drug abuse. Symptoms severity is moderate. No alleviating factors. Duration 3 days PFSH Past Medical History Anxiety: Yes Depression: Yes Cancer: No Cardiovascular Problems: No Diabetes: No Diminished Hearing: No Endocrine: No Genitourinary: No Headaches: Yes Immune Disorder: No Musculoskeletal: No Neurologic: Yes Psychiatric: Yes Reproductive: No Respiratory: No Immunizations Current: Yes Migraines: Yes Past Surgical History Other Surgery: No Social History Alcohol Use: Yes (8 (16 oz beers daily).) Tobacco Use: Yes Substance Use: Yes (MARIJUANA) Allergies-Medications (Allergen,Severity, Reaction): Coded Allergies: Penicillin (Verified Allergy, Severe, Hives, 02/19/17) Codeine (Verified Adverse Reaction, Severe, N/V, 02/19/17) Reported Meds & Prescriptions Reported Meds & Active Scripts Active Reported Effexor (Venlafaxine HCl) 75 Mg Tab 75 Mg PO DAILY Abilify (Aripiprazole) 10 Mg Tab 10 Mg PO DAILY Mirtazapine 15 Mg Tab 15 Mg PO HS Review of Systems General / Constitutional: No: Fever Eyes: No: Visual changes HENT: No: Headaches Cardiovascular: No: Chest Pain or Discomfort Respiratory: No: Shortness of Breath Gastrointestinal: No: Abdominal Pain Genitourinary: No: Dysuria Musculoskeletal: No: Pain Skin: No Rash Neurologic: No: Weakness Psychiatric: Positive: Depression, Suicidal Ideations, Substance Abuse Endocrine: No: Polydipsia Hematologic/Lymphatic: No: Easy Bruising Physical Exam Narrative GENERAL: Well-nourished, well-developed patient in no apparent distress. SKIN: Focused skin assessment reveals no rash and nodules. Skin is Warm and dry. HEAD: Atraumatic. Normocephalic. EYES: Pupils equal and round. No scleral icterus. No injection or drainage. ENT: No nasal bleeding or discharge. Mucous membranes pink and moist. NECK: Trachea midline. No JVD. CARDIOVASCULAR: Regular rate and rhythm. No murmur appreciated. RESPIRATORY: No accessory muscle use. Clear to auscultation. Breath sounds equal bilaterally. GASTROINTESTINAL: Abdomen soft, non-tender, nondistended. Hepatic and splenic margins not palpable. MUSCULOSKELETAL: No obvious deformities. No clubbing. No cyanosis. No edema. NEUROLOGICAL: Awake and alert. No obvious cranial nerve deficits. Motor grossly within normal limits. Normal speech. PSYCHIATRIC: Depressed mood and flat affect; insight and judgment poor. Data Data Last Documented VS Vital Signs Date Time Temp Pulse Resp B/P Pulse Ox O2 Delivery O2 Flow Rate FiO2 02/19/17 21:30 98.6 65 16 116/81 99 Room Air Orders Complete Blood Count With Diff (02/19/17 21:26) Basic Metabolic Panel (Bmp) (02/19/17 21:26) Psych Screen (02/19/17 21:26) Alcohol (Ethanol) (02/19/17 21:26) Drug Screen, Random Urine (02/19/17 21:26) Labs Laboratory Tests Test 02/19/17 21:20 White Blood Count 7.6 TH/MM3 Red Blood Count 6.44 MIL/MM3 Hemoglobin 13.6 GM/DL Hematocrit 43.2 % Mean Corpuscular Volume 67.1 FL Mean Corpuscular Hemoglobin 21.2 PG Mean Corpuscular Hemoglobin 31.5 % Concent Red Cell Distribution Width 14.8 % Platelet Count 191 TH/MM3 Mean Platelet Volume 9.4 FL Neutrophils (%) (Auto) 51.6 % Lymphocytes (%) (Auto) 34.1 % Monocytes (%) (Auto) 11.1 % Eosinophils (%) (Auto) 2.1 % Basophils (%) (Auto) 1.1 % Neutrophils # (Auto) 3.9 TH/MM3 Lymphocytes # (Auto) 2.6 TH/MM3 Monocytes # (Auto) 0.8 TH/MM3 Eosinophils # (Auto) 0.2 TH/MM3 Basophils # (Auto) 0.1 TH/MM3 CBC Comment DIFF FINAL Differential Comment Sodium Level 138 MEQ/L Potassium Level 3.5 MEQ/L Chloride Level 106 MEQ/L Carbon Dioxide Level 23.1 MEQ/L Anion Gap 9 MEQ/L Blood Urea Nitrogen 5 MG/DL Creatinine 0.89 MG/DL Estimat Glomerular Filtration 98 ML/MIN Rate Random Glucose 88 MG/DL Calcium Level 8.8 MG/DL Ethyl Alcohol Level 67 MG/DL [facility] Medical Decision Making Medical Screen Exam Complete: Yes Emergency Medical Condition: Yes Medical Record Reviewed: Yes Differential Diagnosis Depression, suicidal ideation, adjustment disorder, alcohol intoxication Narrative Course I have reviewed the patient's electronic medical record. Patient is here frequently for psychiatric and substance abuse problems CBC is normal Metabolic profile is normal Toxicology screen is ordered and pending and not going to changer fixer Alcohol level is 67 I've ordered psych screen has patient is here under the Flaherty act. He is is medically stable as can be made. Disposition will be per psychiatry after screening Diagnosis Primary Impression: Suicidal ideation Additional Impressions: Depression Qualified Code: F32.9 - Depression, unspecified depression type Alcohol abuse Israel Hoang MD Feb 19, 2017 21:29
[2017-02-19 21:30] VITALS: BP 116/81; PULSE 65; RESP 16; TEMP 98.6; O2SAT 99
[2017-02-19 22:20] LABS: AUTOMATED NEUTROPHIL # 3.9 TH/MM3 (1.8-7.7); BASOPHIL # 0.1 TH/MM3 (0-0.2); BASOPHIL % 1.1 % (0.0-2.0); EOSINOPHIL # 0.2 TH/MM3 (0-0.4); EOSINOPHIL % 2.1 % (0.0-4.0); HEMATOCRIT 43.2 % (39.0-51.0); HEMO FLAGS DIFF FINAL; LYMPH % 34.1 % (9.0-44.0); LYMPHOCYTE # 2.6 TH/MM3 (1.0-4.8); MEAN CELL VOLUME 67.1 FL (80.0-100.0); MEAN CORPUSCULAR HEMOGLOBIN 21.2 PG (27.0-34.0); MEAN CORPUSCULAR HGB CONC 31.5 % (32.0-36.0); MONO % 11.1 % (0.0-8.0); NEUT % 51.6 % (16.0-70.0); PLATELET COUNT 191 TH/MM3 (150-450); RED BLOOD COUNT 6.44 MIL/MM3 (4.50-5.90); RED CELL DISTRIBUTION WIDTH 14.8 % (11.6-17.2); WHITE BLOOD COUNT 7.6 TH/MM3 (4.0-11.0)
[2017-02-19 22:41] LABS: BICARBONATE 23.1 MEQ/L (21.0-32.0); POTASSIUM 3.5 MEQ/L (3.5-5.1)
[2017-02-20 01:09] VITALS: BP 135/79; PULSE 64; RESP 18; TEMP 98.3; O2SAT 98
[2017-02-20 02:09] VITALS: BP 114/61; PULSE 70; RESP 17; TEMP 98.5; O2SAT 99
== END 2017-02-20 05:15 ==
LOC: NEPD 21:06 → NEPJ 02-20 05:15
DX: R45.851 Suicidal ideations (principal); F32.9 Major depressive disorder, single episode, unspecified; F12.90 Cannabis use, unspecified, uncomplicated
CPT/HCPCS: 80048; 80307; 85025; 99285

== ENCOUNTER 2017-09-24 09:46 | Emergency (ER) | payer SELFPAY ==
[~2017-09-24] VITALS: Ht 177.8 cm; Wt 78.0 kg
[~2017-09-24 09:46] MED LIST changes: -ARIP1TAB5 PO; -MIRTA15 PO; +REME15TA PO; -VENL75TA PO
[2017-09-24 09:47] VITALS: BP 129/71; PULSE 87; RESP 16; TEMP 98.7; O2SAT 97
--- NOTE | 2017-09-24 11:12 | PD ---
HPI Chief Complaint: Complaint Time Seen by Provider: 10:54 Travel History International Travel<30 days: No Contact w/Intl Traveler<30days: No Traveled to known affect area: No History of Present Illness HPI 37-year-old male complains of generalized malaise and weakness and bilateral flank pain and low back pain. Patient states that the symptoms started about 2 weeks ago. Patient complained of dark urine recently also. Patient has history of EtOH abuse and substance abuse in the past. Last alcohol was yesterday. Patient denies any headache. Patient denies any earache sore throat. Patient denies any coughing congestion. Patient denies abdominal pain. Patient denies any dysuria or frequency. Patient denies any fever chills. Patient states that his urine has been darker than usually. PFSH Past Medical History Anxiety: Yes Depression: Yes Cardiovascular Problems: No Diminished Hearing: No Endocrine: No Genitourinary: No Headaches: Yes Immune Disorder: No Musculoskeletal: No Neurologic: Yes Psychiatric: Yes Reproductive: No Respiratory: No Immunizations Current: Yes Migraines: Yes Past Surgical History Other Surgery: No Social History Alcohol Use: Yes (8 (16 oz beers daily) to 24, and vodka) Tobacco Use: Yes Substance Use: Yes (MARIHUANNA, IV DRUG USE AND PILLS ) Allergies-Medications (Allergen,Severity, Reaction): Coded Allergies: penicillin G (Verified Allergy, Severe, Hives, 09/24/17) codeine (Verified Adverse Reaction, Severe, N/V, 09/24/17) Reported Meds & Prescriptions Reported Meds & Active Scripts Active Remeron (Mirtazapine) 15 Mg Tab 15 Mg PO HS Review of Systems General / Constitutional: No: Fever Eyes: No: Visual changes HENT: No: Headaches Cardiovascular: No: Chest Pain or Discomfort Respiratory: No: Shortness of Breath Gastrointestinal: No: Abdominal Pain Genitourinary: No: Dysuria Musculoskeletal: No: Pain Skin: No Rash Neurologic: No: Weakness Psychiatric: No: Depression Endocrine: No: Polydipsia Hematologic/Lymphatic: No: Easy Bruising Physical Exam Narrative GENERAL: Well-nourished, well-developed patient. SKIN: Focused skin assessment warm/dry. HEAD: Normocephalic. EYES: No scleral icterus. No injection or drainage. NECK: Supple, trachea midline. No JVD or lymphadenopathy. CARDIOVASCULAR: Regular rate and rhythm without murmurs, gallops, or rubs. RESPIRATORY: Breath sounds equal bilaterally. No accessory muscle use. GASTROINTESTINAL: Abdomen soft, non-tender, nondistended. MUSCULOSKELETAL: No cyanosis, or edema. BACK: Patient has mild tenderness on palpation mid to low lumbar area, without obvious deformity. No CVA tenderness. Neurologic exam normal. Data Data Last Documented VS Vital Signs Date Time Temp Pulse Resp B/P (MAP) Pulse Ox O2 Delivery O2 Flow Rate FiO2 09/24/17 10:37 79 18 09/24/17 09:47 98.7 129/71 (90) 97 Room Air Orders Orders Complete Blood Count With Diff (09/24/17 11:06) Comprehensive Metabolic Panel (09/24/17 11:06) Urinalysis - C+S If Indicated (09/24/17 11:06) Iv Access Insert/Monitor (09/24/17 11:06) Ecg Monitoring (09/24/17 11:06) Labs Laboratory Tests Test 09/24/17 11:10 White Blood Count 4.6 TH/MM3 Red Blood Count 6.28 MIL/MM3 Hemoglobin 12.9 GM/DL Hematocrit 40.9 % Mean Corpuscular Volume 65.0 FL Mean Corpuscular Hemoglobin 20.6 PG Mean Corpuscular Hemoglobin Concent 31.6 % Red Cell Distribution Width 15.5 % Platelet Count 210 TH/MM3 Mean Platelet Volume 9.0 FL Neutrophils (%) (Auto) 59.0 % Lymphocytes (%) (Auto) 24.2 % Monocytes (%) (Auto) 14.4 % Eosinophils (%) (Auto) 0.9 % Basophils (%) (Auto) 1.5 % Neutrophils # (Auto) 2.7 TH/MM3 Lymphocytes # (Auto) 1.1 TH/MM3 Monocytes # (Auto) 0.7 TH/MM3 Eosinophils # (Auto) 0.0 TH/MM3 Basophils # (Auto) 0.1 TH/MM3 CBC Comment DIFF FINAL Differential Comment Urine Color LIGHT-YELLOW Urine Turbidity CLEAR Urine pH 5.5 Urine Specific Raven 1.002 Urine Protein NEG mg/dL Urine Glucose (UA) NEG mg/dL Urine Ketones NEG mg/dL Urine Occult Blood NEG Urine Nitrite NEG Urine Bilirubin NEG Urine Urobilinogen LESS THAN 2.0 MG/DL Urine Leukocyte Esterase NEG Urine RBC LESS THAN 1 /hpf Urine WBC 1 /hpf Microscopic Urinalysis Comment CULT NOT INDICATED Blood Urea Nitrogen 7 MG/DL Creatinine 0.85 MG/DL Random Glucose 88 MG/DL Total Protein 7.5 GM/DL Albumin 3.6 GM/DL Calcium Level 8.9 MG/DL Alkaline Phosphatase 147 U/L Aspartate Amino Transf (AST/SGOT) 875 U/L Alanine Aminotransferase (ALT/SGPT) 2595 U/L Total Bilirubin 1.7 MG/DL Sodium Level 140 MEQ/L Potassium Level 4.5 MEQ/L Chloride Level 108 MEQ/L Carbon Dioxide Level 26.6 MEQ/L Anion Gap 5 MEQ/L Estimat Glomerular Filtration Rate 103 ML/MIN MDM Medical Decision Making Medical Screen Exam Complete: Yes Emergency Medical Condition: Yes Interpretation(s) 1320 9 PM. CBC WBC 4.6. Hemoglobin 12.9 hematocrit 40.9. MCV 65.0. Normal differential. Total bili 1.7. AST 875. ALT 2595. Alkaline phosphatase 147. UA is negative. Differential Diagnosis Differential diagnosis including viral syndrome, musculoskeletal pain, UTI, pyelonephritis, dehydration, electrolyte imbalance. Narrative Course 37-year-old male with mid to low back pain, generalized malaise and weakness. Diagnosis Primary Impression: Transaminitis Additional Impression: Alcohol abuse Patient Instructions: General Instructions Med/Other Pt SpecificInfo: No Meds Exist/No RX given Disposition: 01 DISCHARGE HOME Condition: Stable Kamari Theodore MD Sep 24, 2017 11:12
[2017-09-24 11:23] LABS: BILIRUBIN, URINE NEG (NEG); BLOOD, URINE NEG (NEG); GLUCOSE,URINE NEG (NEG); KETONE, URINE NEG (NEG); NITRITE,URINE NEG (NEG); PH, URINE 5.5 (5.0-8.5); URINE COLOR LIGHT-YELLOW (YELLW/STRAW); URINE LEUKOCYTE ESTERASE NEG (NEG)
[2017-09-24 11:24] LABS: AUTOMATED NEUTROPHIL # 2.7 TH/MM3 (1.8-7.7); BASOPHIL # 0.1 TH/MM3 (0-0.2); BASOPHIL % 1.5 % (0.0-2.0); EOSINOPHIL % 0.9 % (0.0-4.0); HEMATOCRIT 40.9 % (39.0-51.0); HEMOGLOBIN 12.9 GM/DL (13.0-17.0); LYMPH % 24.2 % (9.0-44.0); LYMPHOCYTE # 1.1 TH/MM3 (1.0-4.8); MEAN CORPUSCULAR HEMOGLOBIN 20.6 PG (27.0-34.0); MEAN CORPUSCULAR HGB CONC 31.6 % (32.0-36.0); MONO % 14.4 % (0.0-8.0); MONOCYTE # 0.7 TH/MM3 (0-0.9); PLATELET COUNT 210 TH/MM3 (150-450); RED BLOOD COUNT 6.28 MIL/MM3 (4.50-5.90); RED CELL DISTRIBUTION WIDTH 15.5 % (11.6-17.2); WHITE BLOOD COUNT 4.6 TH/MM3 (4.0-11.0)
[2017-09-24 11:45] LABS: ALKALINE PHOSPHATASE 147 U/L (45-117); ALT (GPT) 2595 U/L (12-78); TOTAL BILIRUBIN ADULT 1.7 MG/DL (0.2-1.0); TOTAL PROTEIN 7.5 GM/DL (6.4-8.2)
[2017-09-24 11:46] LABS: ALBUMIN 3.6 GM/DL (3.4-5.0); BICARBONATE 26.6 MEQ/L (21.0-32.0); BLOOD UREA NITROGEN 7 MG/DL (7-18); CALCIUM 8.9 MG/DL (8.5-10.1); CHLORIDE 108 MEQ/L (98-107); CREATININE 0.85 MG/DL (0.60-1.30); GLOMERULAR FILTRATION RATE 103 ML/MIN (>89); GLUCOSE,RANDOM 88 MG/DL (74-106); SODIUM (NA) 140 MEQ/L (136-145)
[2017-09-24 11:47] LABS: AST (GOT) 875 U/L (15-37)
== END 2017-09-24 14:14 | disposition home or self-care (01) ==
LOC: NEPC 09:46
DX: R74.0 Nonspecific elevation of levels of transaminase and lactic acid dehydrogenase [LDH] (principal); F10.10 Alcohol abuse, uncomplicated; M54.5 Low back pain; Z72.0 Tobacco use
CPT/HCPCS: 80053; 81001; 85025; 99283

== ENCOUNTER 2017-10-11 23:55 | Inpatient (IN) | payer SELFPAY ==
[~2017-10-11] VITALS: Ht 180.3 cm; Wt 72.9 kg
[2017-10-12] VITALS (14 sets, daily range): BP systolic 95–131; BP diastolic 52–80; PULSE 49–79; RESP 14–24; TEMP 97.3–98.5; O2SAT 98–100
--- NOTE | 2017-10-12 00:53 | RADRPT ---
EXAM DATE/TIME: 10/12/2017 00:31 [facility] COMPARISON: CHEST SINGLE AP, April 20, 2015, 22:30. INDICATIONS : Chest tightness, back cramps, and abdominal pain. MEDICAL HISTORY : None. SURGICAL HISTORY : ORIF Right knee ENCOUNTER: Initial ACUITY: 1 day PAIN SCORE: 8/10 LOCATION: Bilateral chest FINDINGS: A single view of the chest demonstrates the lungs to be symmetrically aerated without evidence of mas s, infiltrate or effusion. The cardiomediastinal contours are unremarkable. Osseous structures are intact. CONCLUSION: No acute disease. Jamel Almazan MD on October 12, 2017 at 0:48 Board Certified Radiologist. This report was verified electronically.
[2017-10-12 01:07] LABS: AUTOMATED NEUTROPHIL # 3.3 TH/MM3 (1.8-7.7); BASOPHIL # 0.1 TH/MM3 (0-0.2); BASOPHIL % 1.3 % (0.0-2.0); EOSINOPHIL # 0.2 TH/MM3 (0-0.4); EOSINOPHIL % 2.1 % (0.0-4.0); HEMATOCRIT 40.1 % (39.0-51.0); HEMOGLOBIN 12.9 GM/DL (13.0-17.0); LYMPH % 38.4 % (9.0-44.0); LYMPHOCYTE # 2.9 TH/MM3 (1.0-4.8); MEAN CELL VOLUME 63.8 FL (80.0-100.0); MEAN CORPUSCULAR HEMOGLOBIN 20.5 PG (27.0-34.0); MEAN CORPUSCULAR HGB CONC 32.2 % (32.0-36.0); MEAN PLATELET VOLUME 9.3 FL (7.0-11.0); MONO % 13.2 % (0.0-8.0); PLATELET COUNT 236 TH/MM3 (150-450); RED BLOOD COUNT 6.28 MIL/MM3 (4.50-5.90); RED CELL DISTRIBUTION WIDTH 17.5 % (11.6-17.2); WHITE BLOOD COUNT 7.4 TH/MM3 (4.0-11.0)
[2017-10-12 01:20] LABS: BILIRUBIN, URINE NEG (NEG); BLOOD, URINE NEG (NEG); GLUCOSE,URINE NEG (NEG); KETONE, URINE 10 mg/dL (NEG); NITRITE,URINE NEG (NEG); PH, URINE 6.5 (5.0-8.5); URINE COLOR YELLOW (YELLW/STRAW); URINE LEUKOCYTE ESTERASE NEG (NEG)
[2017-10-12 01:21] LABS: LACTIC ACID SEPSIS PROTOCOL 2.7 mmol/L (0.4-2.0)
[2017-10-12 01:22] LABS: INTERNATIONAL NORMALIZED RATIO 1.1 RATIO
[2017-10-12 01:25] LABS: BICARBONATE 24.2 MEQ/L (21.0-32.0); BLOOD UREA NITROGEN 16 MG/DL (7-18); CALCIUM 9.1 MG/DL (8.5-10.1); CHLORIDE 98 MEQ/L (98-107); CREATININE 1.01 MG/DL (0.60-1.30); GLOMERULAR FILTRATION RATE 84 ML/MIN (>89); GLUCOSE,RANDOM 134 MG/DL (74-106); MAGNESIUM 1.8 MG/DL (1.5-2.5); PHOSPHORUS 1.5 MG/DL (2.5-4.9); SODIUM (NA) 135 MEQ/L (136-145)
[2017-10-12 01:26] LABS: D-DIMER LESS THAN 0.19 MG/L FEU (0.00-0.50)
[2017-10-12 01:40] LABS: ALKALINE PHOSPHATASE 116 U/L (45-117); ALT (GPT) 3916 U/L (12-78); AST (GOT) 1932 U/L (15-37); TOTAL BILIRUBIN ADULT 7.7 MG/DL (0.2-1.0); TOTAL PROTEIN 7.7 GM/DL (6.4-8.2); TROPONIN I LESS THAN 0.02 NG/ML (0.02-0.05)
[2017-10-12] MEDS ORDERED: SODIUM CHLOR 0.9% 1000 ML INJ 1,000 ML IV ONE (03:00)
--- NOTE | 2017-10-12 03:23 | RADRPT ---
EXAM DATE/TIME: 10/12/2017 02:45 [place] COMPARISON: No previous studies available for comparison. INDICATIONS : Abdominal pain. ORAL CONTRAST: No oral contrast ingested. RADIATION DOSE: 6.14 CTDIvol (mGy) MEDICAL HISTORY : Hepatitis C. Substance abuse SURGICAL HISTORY : None. ENCOUNTER: Initial ACUITY: 1 day PAIN SCALE: 10/10 LOCATION: abdomen TECHNIQUE: Volumetric scanning of the abdomen and pelvis was performed. Using automated exposure control and ad justment of the mA and/or kV according to patient size, radiation dose was kept as low as reasonably achievable to obtain optimal diagnostic quality images. DICOM format image data is available electro nically for review and comparison. FINDINGS: LOWER LUNGS: The visualized lower lungs are clear. LIVER: Homogeneous density without lesion. There is no dilation of the biliary tree. No calcified gallston es. SPLEEN: Normal size without lesion. PANCREAS: Within normal limits. KIDNEYS: Normal in size and shape. There is no mass, stone, or hydronephrosis. ADRENAL GLANDS: Within normal limits. VASCULAR: There is no aortic aneurysm. BOWEL/MESENTERY: The stomach, small bowel, and colon demonstrate no acute abnormality. There is no free intraperitone al air or fluid. ABDOMINAL WALL: Within normal limits. RETROPERITONEUM: There is no lymphadenopathy. BLADDER: No wall thickening or mass. REPRODUCTIVE: Within normal limits. INGUINAL: There is no lymphadenopathy or hernia. MUSCULOSKELETAL: Within normal limits for patient age. CONCLUSION: 1. Negative CT abdomen pelvis without contrast, except for mild constipation. No significant change f rom January 2016. Jamel Almazan MD on October 12, 2017 at 3:16 Board Certified Radiologist. This report was verified electronically.
[2017-10-12] MEDS ORDERED: SENNOSIDES 8.6 MG TAB PO PRN (04:00)
[2017-10-12] MEDS ORDERED: SODIUM CHLORIDE 0.9% FLUSH 10 ML FLUSH IV FLUSH PRN (04:00)
[2017-10-12] MEDS ORDERED: LORazepam 2 MG/ML VIAL IV PUSH PRN ×4 (04:00)
[2017-10-12] MEDS ORDERED: HALOPERIDOL LACTATE 5 MG/ML AMP IM PRN (04:00)
[2017-10-12] MEDS ORDERED: LORazepam 2 MG TAB PO PRN (04:00)
[2017-10-12] MEDS ORDERED: DEXTROSE 5% IN WATE 500 ML INJ 500 ML IV ONE (04:00)
[2017-10-12] MEDS ORDERED: MAGNESIUM HYDROXIDE SUSP 30 ML CUP PO PRN (04:00)
[2017-10-12] MEDS ORDERED: FLUMAZENIL 0.5 MG/5 ML VIAL IV PUSH PRN (04:00)
[2017-10-12] MEDS ORDERED: ONDANSETRON HCL 4 MG/2 ML VIAL IVP PRN (04:00)
[2017-10-12] MEDS ORDERED: LACTULOSE SYRUP 20 GM/30 ML CUP PO PRN (04:00)
[2017-10-12] MEDS ORDERED: BISACODYL 10 MG SUPP RECTAL PRN (04:00)
[2017-10-12] MEDS ORDERED: MORPHINE SULFATE 2 MG/ML INJ IV PUSH PRN ×2 (04:00→04:30)
[2017-10-12] MEDS ORDERED: LORazepam 1 MG TAB PO PRN (04:00)
--- NOTE | 2017-10-12 04:23 | PD ---
HPI . Chest pain Chief Complaint: Chest Pain Time Seen by Provider: 00:02 Travel History International Travel<30 days: No Contact w/Intl Traveler<30days: No Traveled to known affect area: No History of Present Illness HPI 37-year-old male presents extremely anxious not feeling well stating he is going to . Limited historian secondary to extremities versus anxiety at presentation. Patient does note he has something wrong with his liver that is been recently diagnosed but cannot elucidate further. [facility] Past Medical History Narrative Medical Past medical history reviewed Anxiety: Yes Depression: Yes Cardiovascular Problems: No Diminished Hearing: No Endocrine: No Genitourinary: No Headaches: Yes Hepatitis: Yes (C, possible, waiting on results from health department) Immune Disorder: No Musculoskeletal: No Neurologic: Yes Psychiatric: Yes Reproductive: No Respiratory: No Immunizations Current: Yes Migraines: Yes Tetanus Vaccination: < 5 Years Past Surgical History Other Surgery: No Social History Alcohol Use: Yes (pt states "stopped drinking 2 weeks ago") Tobacco Use: Yes (no smoking for 2 days) Substance Use: Yes (danae marshall of IV drug use) Allergies-Medications (Allergen,Severity, Reaction): Coded Allergies: penicillin G (Verified Allergy, Severe, Hives, 09/24/17) codeine (Verified Adverse Reaction, Severe, N/V, 09/24/17) Reported Meds & Prescriptions Reported Meds & Active Scripts Active No Active Prescriptions or Reported Medications Narrative Medication Allergies and medications reviewed Review of Systems ROS Limitations: Altered Mental Status, Poor Historian Except as stated in HPI: all other systems reviewed are Neg General / Constitutional: No: Fever Eyes: No: Visual changes HENT: No: Headaches Cardiovascular: No: Chest Pain or Discomfort Respiratory: No: Shortness of Breath Gastrointestinal: No: Abdominal Pain Genitourinary: No: Dysuria Musculoskeletal: No: Pain Skin: No Rash Neurologic: No: Weakness Psychiatric: No: Depression Endocrine: No: Polydipsia Hematologic/Lymphatic: No: Easy Bruising Physical Exam Narrative GENERAL: Awake and anxious, writhing in the stretcher, difficult historian. Vital signs afebrile normal and stable SKIN: Warm and dry. Patient appears jaundice HEAD: Atraumatic. Normocephalic. EYES: Pupils equal and round. scleral icterus. No injection or drainage. ENT: No nasal bleeding or discharge. Mucous membranes pink and moist. NECK: Trachea midline. No JVD. Supple CARDIOVASCULAR: Regular rate and rhythm. No murmurs or gallops RESPIRATORY: No accessory muscle use. Clear to auscultation. Breath sounds equal bilaterally. GASTROINTESTINAL: Abdomen soft, non-tender, nondistended. Hepatic and splenic margins not palpable. MUSCULOSKELETAL: Extremities without clubbing, cyanosis, or edema. No obvious deformities. NEUROLOGICAL: Awake and alert. No obvious focal deficits PSYCHIATRIC: Anxious and writhing on stretcher Data Data Last Documented VS Vital Signs Date Time Temp Pulse Resp B/P (MAP) Pulse Ox O2 Delivery O2 Flow Rate FiO2 10/12/17 02:23 51 18 99/52 (68) 100 Room Air 10/12/17 00:02 98.5 Orders Orders Electrocardiogram (10/12/17 00:02) Complete Blood Count With Diff (10/12/17 00:02) Comprehensive Metabolic Panel (10/12/17 00:02) Prothrombin Time / Inr (Pt) (10/12/17 00:02) Act Partial Throm Time (Ptt) (10/12/17 00:02) Lactic Acid Sepsis Protocol (10/12/17 00:02) Magnesium (Mg) (10/12/17 00:02) Phosphorus (Po4) (10/12/17 00:02) Lipase (10/12/17 00:02) Ckmb (Isoenzyme) Profile (10/12/17 00:02) Troponin I (10/12/17 00:02) Urinalysis - C+S If Indicated (10/12/17 00:02) Influenzae A/B Antigen (10/12/17 00:02) Blood Culture (10/12/17 00:02) Chest, Single Ap (10/12/17 00:02) Blood Glucose (10/12/17 00:02) Ecg Monitoring (10/12/17 00:02) Iv Access Insert/Monitor (10/12/17 00:02) Oximetry (10/12/17 00:02) Oxygen Administration (10/12/17 00:02) Drug Screen, Random Urine (10/12/17 00:02) Ammonia (10/12/17 00:02) Arterial Blood Gas (Abg) (10/12/17 ) D-Dimer (10/12/17 00:02) CKMB (10/12/17 00:10) CKMB% (10/12/17 00:10) Ct Abd/Pel W/O Iv Contrast (10/12/17 ) Sodium Chlor 0.9% 1000 Ml Inj (Ns 1000 M (10/12/17 03:00) Hepatic Functional Panel (10/12/17 03:52) Labs Laboratory Tests Test 10/12/17 00:10 10/12/17 00:45 10/12/17 01:00 10/12/17 03:35 White Blood Count 7.4 TH/MM3 Red Blood Count 6.28 MIL/MM3 Hemoglobin 12.9 GM/DL Hematocrit 40.1 % Mean Corpuscular Volume 63.8 FL Mean Corpuscular Hemoglobin 20.5 PG Mean Corpuscular Hemoglobin Concent 32.2 % Red Cell Distribution Width 17.5 % Platelet Count 236 TH/MM3 Mean Platelet Volume 9.3 FL Neutrophils (%) (Auto) 45.0 % Lymphocytes (%) (Auto) 38.4 % Monocytes (%) (Auto) 13.2 % Eosinophils (%) (Auto) 2.1 % Basophils (%) (Auto) 1.3 % Neutrophils # (Auto) 3.3 TH/MM3 Lymphocytes # (Auto) 2.9 TH/MM3 Monocytes # (Auto) 1.0 TH/MM3 Eosinophils # (Auto) 0.2 TH/MM3 Basophils # (Auto) 0.1 TH/MM3 CBC Comment DIFF FINAL Differential Comment Prothrombin Time 11.0 SEC Prothromb Time International Ratio 1.1 RATIO Activated Partial Thromboplast Time 26.8 SEC D-Dimer Quantitative (PE/DVT) LESS THAN 0.19 MG/L FEU Blood Urea Nitrogen 16 MG/DL Creatinine 1.01 MG/DL Random Glucose 134 MG/DL Total Protein 7.7 GM/DL Albumin 4.0 GM/DL Calcium Level 9.1 MG/DL Phosphorus Level 1.5 MG/DL Magnesium Level 1.8 MG/DL Alkaline Phosphatase 116 U/L Aspartate Amino Transf (AST/SGOT) 1932 U/L Alanine Aminotransferase (ALT/SGPT) 3916 U/L Total Bilirubin 7.7 MG/DL Sodium Level 135 MEQ/L Potassium Level 3.3 MEQ/L Chloride Level 98 MEQ/L Carbon Dioxide Level 24.2 MEQ/L Anion Gap 13 MEQ/L Estimat Glomerular Filtration Rate 84 ML/MIN Lactic Acid Level 2.7 mmol/L Ammonia 34 MCMOL/L Total Creatine Kinase 109 U/L Creatine Kinase MB 2.7 NG/ML Troponin I LESS THAN 0.02 NG/ML Lipase 138 U/L Blood Gas Puncture Site LT RADIAL Blood Gas Patient Temperature 98.6 Blood Gas HCO3 23 mmol/L Blood Gas Base Excess 1.1 mmol/L Blood Gas Oxygen Saturation 97 % Arterial Blood pH 7.61 Arterial Blood Partial Pressure CO2 22 mmHg Arterial Blood Partial Pressure O2 122 mmHG Arterial Blood Oxygen Content 16.5 Vol % Arterial Blood Carboxyhemoglobin 1.4 % Arterial Blood Methemoglobin 0.8 % Blood Gas Hemoglobin 12.0 G/DL Oxygen Delivery Device ROOM AIR Blood Gas Inspired Oxygen 21 % Urine Color YELLOW Urine Turbidity CLEAR Urine pH 6.5 Urine Specific [place] 1.006 Urine Protein NEG mg/dL Urine Glucose (UA) NEG mg/dL Urine Ketones 10 mg/dL Urine Occult Blood NEG Urine Nitrite NEG Urine Bilirubin NEG Urine Urobilinogen LESS THAN 2.0 MG/DL Urine Leukocyte Esterase NEG Urine RBC LESS THAN 1 /hpf Urine WBC LESS THAN 1 /hpf Microscopic Urinalysis Comment CATH-CULT NOT IND Urine Opiates Screen NEG Urine Barbiturates Screen NEG Urine Amphetamines Screen NEG Urine Benzodiazepines Screen NEG Urine Cocaine Screen NEG Urine Cannabinoids Screen NEG MDM Medical Decision Making Medical Screen Exam Complete: Yes Emergency Medical Condition: Yes Medical Record Reviewed: Yes Differential Diagnosis Anxiety, sepsis, acute liver failure Narrative Course Patient's anxiety state resolved without intervention. Patient resting comfortably in stretcher. Laboratory examinations reviewed, patient has markedly elevated liver function tests with bilirubin 7.7, transaminases markedly elevated. Tylenol level added to patient's laboratory studies at 0 and 4 hour levels. Hepatitis panel added Patient admitted to hospitalist service Diagnosis Primary Impression: Liver failure Qualified Codes: K72.90 - Hepatic failure, unspecified without coma Admitting Information Admitting Physician Requests: Admit Scripts No Active Prescriptions or Reported Meds Ganga Schwartz MD Oct 12, 2017 04:23
[2017-10-12] MEDS ORDERED: LACTULOSE SYRUP 20 GM/30 ML CUP PO ONE (04:30)
--- NOTE | 2017-10-12 04:54 | HHI.HP ---
[facility] No Primary Care Physician Admission Diagnosis Elevated LFT's/Alcohol Abuse Diagnoses: (1) Hepatic encephalopathy Diagnosis: Principal (2) Elevated LFTs Diagnosis: Principal (3) Lactic acidosis Diagnosis: Principal (4) Alcohol abuse Diagnosis: Principal Travel History International Travel<30 Days: No Contact w/Intl Traveler <30 Da: No Traveled to Known Affected Are: No History of Present Illness This is a 37-year-old male with a PMH of Anxiety, Depression and Alcohol Abuse who presented to ER with complaints of generalized malaise in addition to episodes of confusion and feeling "foggy". States symptoms have been ongoing for a few weeks. Seen in ER on 09/24/17 for similar complaints, found to have transaminitis at that time and d/c'd, states he followed up w/ Health Department and had Hepatitis Panel however does not know results. Now w/ progressive symptoms. Reports drinking 1 pint voda or 15-20 beers per day for the last 1yr, however has been unable to drink in the last 2wks due to symptoms. Denies fever, chills, nausea, vomiting or diarrhea. On arrival, BP 96/71, HR 56, O2 sat 99% on RA, Afebrile. CBC essentially at baseline. Chemistry unremarkable except for GFR 84. Lactic Acid 2.7. AST 1932, ALT 3916 , ALP 116, Total Bili 7.7. Ammonia 34. INR 1.1. UA negative. Urine Drug Screen negative. CXR with no acute findings. CT Abdomen/Pelvis negative. S/p IVF in ER. Review of Systems Except as stated in HPI: all other systems reviewed are Neg ROS: 14 point review of systems otherwise negative. Past Family Social History Past Medical History PMH: Anxiety, Depression and Alcohol Abuse Past Surgical History PAST SURGICAL HISTORY: None Allergies: Coded Allergies: penicillin G (Verified Allergy, Severe, Hives, 09/24/17) codeine (Verified Adverse Reaction, Severe, N/V, 09/24/17) Family History PAST FAMILY HISTORY: Reviewed. No h/o DM or CAD Social History PAST SOCIAL HISTORY: Heavy alcohol abuse, quit 2 weeks ago. Positive for tobacco. +Marijuana. H/o IVDU. Physical Exam Vital Signs Vital Signs Date Time Temp Pulse Resp B/P (MAP) Pulse Ox O2 Delivery O2 Flow Rate FiO2 10/12/17 04:20 50 18 95/53 (67) 100 Room Air 10/12/17 02:23 51 18 99/52 (68) 100 Room Air 10/12/17 01:41 56 18 96/71 (79) 99 Room Air 10/12/17 00:54 71 20 121/72 (88) 98 Room Air 10/12/17 00:07 100 Room Air 10/12/17 00:02 98.5 79 24 131/80 (97) 100 Physical Exam PE: GENERAL: Young white male in no acute distress. HEENT: PERRLA, EOMI. No scleral icterus or conjunctival pallor. No lid lag or facial droop. +jaundice CARDIOVASCULAR: Regular rate and rhythm. No obvious murmurs to auscultation. No chest tenderness to palpation. RESPIRATORY: No obvious rhonchi or wheezing. Clear to auscultation. Breath sounds equal bilaterally. GASTROINTESTINAL: Abdomen soft, non-tender, nondistended. BS normal. MUSCULOSKELETAL: Extremities without clubbing, cyanosis, or edema. No obvious deformities. NEUROLOGICAL: Awake, alert and oriented x4. No focal neurologic deficits. Moving both upper and lower extremities spontaneously. Laboratory Laboratory Tests Test 10/12/17 00:10 10/12/17 00:45 10/12/17 01:00 10/12/17 03:35 White Blood Count 7.4 Red Blood Count 6.28 Hemoglobin 12.9 Hematocrit 40.1 Mean Corpuscular Volume 63.8 Mean Corpuscular Hemoglobin 20.5 Mean Corpuscular Hemoglobin Concent 32.2 Red Cell Distribution Width 17.5 Platelet Count 236 Mean Platelet Volume 9.3 Neutrophils (%) (Auto) 45.0 Lymphocytes (%) (Auto) 38.4 Monocytes (%) (Auto) 13.2 Eosinophils (%) (Auto) 2.1 Basophils (%) (Auto) 1.3 Neutrophils # (Auto) 3.3 Lymphocytes # (Auto) 2.9 Monocytes # (Auto) 1.0 Eosinophils # (Auto) 0.2 Basophils # (Auto) 0.1 CBC Comment DIFF FINAL Differential Comment Prothrombin Time 11.0 Prothromb Time International Ratio 1.1 Activated Partial Thromboplast Time 26.8 D-Dimer Quantitative (PE/DVT) LESS THAN 0.19 Blood Urea Nitrogen 16 Creatinine 1.01 Random Glucose 134 Total Protein 7.7 Albumin 4.0 Calcium Level 9.1 Phosphorus Level 1.5 Magnesium Level 1.8 Alkaline Phosphatase 116 Aspartate Amino Transf (AST/SGOT) 1932 Alanine Aminotransferase (ALT/SGPT) 3916 Total Bilirubin 7.7 Sodium Level 135 Potassium Level 3.3 Chloride Level 98 Carbon Dioxide Level 24.2 Anion Gap 13 Estimat Glomerular Filtration Rate 84 Lactic Acid Level 2.7 0.7 Ammonia 34 Total Creatine Kinase 109 Creatine Kinase MB 2.7 Troponin I LESS THAN 0.02 Lipase 138 Blood Gas Puncture Site LT RADIAL Blood Gas Patient Temperature 98.6 Blood Gas HCO3 23 Blood Gas Base Excess 1.1 Blood Gas Oxygen Saturation 97 Arterial Blood pH 7.61 Arterial Blood Partial Pressure CO2 22 Arterial Blood Partial Pressure O2 122 Arterial Blood Oxygen Content 16.5 Arterial Blood Carboxyhemoglobin 1.4 Arterial Blood Methemoglobin 0.8 Blood Gas Hemoglobin 12.0 Oxygen Delivery Device ROOM AIR Blood Gas Inspired Oxygen 21 Urine Color YELLOW Urine Turbidity CLEAR Urine pH 6.5 Urine Specific [place] 1.006 Urine Protein NEG Urine Glucose (UA) NEG Urine Ketones 10 Urine Occult Blood NEG Urine Nitrite NEG Urine Bilirubin NEG Urine Urobilinogen LESS THAN 2.0 Urine Leukocyte Esterase NEG Urine RBC LESS THAN 1 Urine WBC LESS THAN 1 Microscopic Urinalysis Comment CATH-CULT NOT IND Urine Opiates Screen NEG Urine Barbiturates Screen NEG Urine Amphetamines Screen NEG Urine Benzodiazepines Screen NEG Urine Cocaine Screen NEG Urine Cannabinoids Screen NEG Date/Time Source Procedure Growth Status 10/12/17 00:15 Blood Peripheral Aerobic Blood Culture Pending Received 10/12/17 00:15 Blood Peripheral Anaerobic Blood Culture Pending Received 10/12/17 00:10 Nasal Washing Influenza Types A,B Antigen (VLADISLAV) - Final NEGATIVE FOR FLU A AND B ANTIGEN.... Complete Result Diagram: 10/12/17910/12/179 Caprini VTE Risk Assessment Caprini VTE Risk Assessment: No/Low Risk (score <= 1) Caprini Risk Assessment Model Point Value = 1 Point Value = 2 Point Value = 3 Point Value = 5 Age 41-60 Minor surgery BMI > 25 kg/m2 Swollen legs Varicose veins or History of unexplained or recurrent spontaneous Oral contraceptives or hormone replacement Sepsis (< 1 month) Serious lung disease, including pneumonia (< 1 month) Abnormal pulmonary function Acute myocardial infarction Congestive heart failure (< 1 month) History of inflammatory bowel disease Medical patient at bed rest Age 61-74 Arthroscopic surgery Major open surgery (> 45 min) Laparoscopic surgery (> 45 min) Malignancy Confined to bed (> 72 hours) Immobilizing plaster cast Central venous access Age >= 75 History of VTE Family history of VTE Factor V Leiden Prothrombin [id number] Lupus anticoagulant Anticardiolipin antibodies Elevated serum homocysteine Heparin-induced thrombocytopenia Other congenital or acquired thrombophilia Stroke (< 1 month) Elective arthroplasty Hip, pelvis, or leg fracture Acute spinal cord injury (< 1 month) Prophylaxis Regimen Total Risk Factor Score Risk Level Prophylaxis Regimen 0-1 Low Early ambulation 2 Moderate Order ONE of the following: *Sequential Compression Device (SCD) *Heparin 5000 units SQ BID 3-4 Higher Order ONE of the following medications: *Heparin 5000 units SQ TID *Enoxaparin/Lovenox 40 mg SQ daily (WT < 150 kg, CrCl > 30 mL/min) *Enoxaparin/Lovenox 30 mg SQ daily (WT < 150 kg, CrCl > 10-29 mL/min) *Enoxaparin/Lovenox 30 mg SQ BID (WT < 150 kg, CrCl > 30 mL/min) AND/OR *Sequential Compression Device (SCD) 5 or more Highest Order ONE of the following medications: *Heparin 5000 units SQ TID (Preferred with Epidurals) *Enoxaparin/Lovenox 40 mg SQ daily (WT < 150 kg, CrCl > 30 mL/min) *Enoxaparin/Lovenox 30 mg SQ daily (WT < 150 kg, CrCl > 10-29 mL/min) *Enoxaparin/Lovenox 30 mg SQ BID (WT < 150 kg, CrCl > 30 mL/min) AND *Sequential Compression Device (SCD) Assessment and Plan Problem List: (1) Hepatic encephalopathy ICD Code: K72.90 - Hepatic failure, unspecified without coma (2) Elevated LFTs ICD Code: R79.89 - Other specified abnormal findings of blood chemistry (3) Alcohol abuse ICD Code: F10.10 - Alcohol abuse, uncomplicated Status: Acute (4) Lactic acidosis ICD Code: E87.2 - Acidosis Assessment and Plan A/P: 1. Hepatic Encephalopathy: c/o confusion x2 wks, secondary to significant transaminitis w/ hyperammonemia, Ammonia 34. Start Lactulose. Neuro checks q4h 2. Elevated LFTs: likely secondary to chronic alcohol abuse, however eval for Hepatitis, check Hep Profile, check Lipid Profile, check Hgb A1c, Tylenol pending. Consult GI for further evaluation/recommendations. CT Abd/Pelvis w/ no acute findings, images reviewed by me. 3. Lactic Acidosis: Lactate 2.7, likely secondary to decreased PO intake/ dehydration, repeat Lactic Acid. Caution w/ IVF in light of acute liver failure. 4. Alcohol Abuse: Heavy alcohol abuse, 1pint vodka or 15-20 beers/day for 1yr , stopped drinking 2wks ago due to symptoms. CIWA, Seizure Precautions, MVT/ Thiamine/Folate 5. DVT Prophylaxis: SCD/Teds. 6. Social work for d/c planning as needed. 7. Case discussed w/ ER physician at length, labs/records/imaging reviewed by me Physician Certification 2 Midnight Certification Type: Admission for Inpatient Services Order for Inpatient Services The services are ordered in accordance with Medicare regulations or non- Medicare payer requirements, as applicable. In the case of services not specified as inpatient-only, they are appropriately provided as inpatient services in accordance with the 2-midnight benchmark. Estimated LOS (days): 2 days is the estimated time the patient will need to remain in the hospital, assuming treatment plan goals are met and no additional complications. Post-Hospital Plan: Not yet determined Beatriz Madrigal MD Oct 12, 2017 04:54
[2017-10-12 04:59] LABS: ACETAMINOPHEN LESS THAN 2.0 MCG/ML (10.0-30.0)
[2017-10-12 06:00] LABS: CHOLESTEROL 109 MG/DL (120-200); TRIGLYCERIDES 145 MG/DL (42-150)
[2017-10-12 06:01] LABS: CHOLESTEROL/ HDL RATIO 8.19 RATIO; HDL CHOLESTEROL 13.3 MG/DL (40.0-60.0); LDL CHOLESTEROL 67 MG/DL (0-99)
[2017-10-12 07:29] LABS: ACETAMINOPHEN LESS THAN 2.0 MCG/ML (10.0-30.0)
[2017-10-12] MEDS: SODIUM CHLORIDE 0.9% FLUSH 10 ML FLUSH IV FLUSH SCH ×2 (09:00→21:04)
[2017-10-12] MEDS: DOCUSATE SODIUM 50 MG/SENNA 8.6 MG TAB PO SCH ×2 (09:37→21:00)
[2017-10-12] MEDS: LACTULOSE SYRUP 20 GM/30 ML CUP PO SCH ×4 (09:37→21:04)
[2017-10-12] MEDS: MULTIVITAMINS/MINERALS THERAPEUTIC TAB PO SCH (09:37)
[2017-10-12] MEDS: THIAMINE HCL 100 MG TAB PO SCH (09:37)
[2017-10-12] MEDS: FOLIC ACID 1 MG TAB PO SCH (09:37)
--- NOTE | 2017-10-12 10:51 | HHI.PR ---
Subjective Remarks Follow-up hepatic encephalopathy 10/12/17-patient seen and examined, denies any alcohol abuse. Alert and oriented 3. Denies any significant abdominal pain. Report decreased appetite over the past several weeks. Objective Vitals Vital Signs Date Time Temp Pulse Resp B/P (MAP) Pulse Ox O2 Delivery O2 Flow Rate FiO2 10/12/17 09:16 97.9 57 16 103/62 (76) 98 10/12/17 05:45 57 10/12/17 05:38 Room Air 10/12/17 05:38 97.3 53 16 120/61 (80) 99 10/12/17 05:21 10/12/17 04:43 49 18 100/56 (71) 100 Room Air 10/12/17 04:20 50 18 95/53 (67) 100 Room Air 10/12/17 02:23 51 18 99/52 (68) 100 Room Air 10/12/17 01:41 56 18 96/71 (79) 99 Room Air 10/12/17 00:54 71 20 121/72 (88) 98 Room Air 10/12/17 00:07 100 Room Air 10/12/17 00:02 98.5 79 24 131/80 (97) 100 I/O 10/11/17 10/11/17 10/11/17 10/12/17 10/12/17 10/12/17 07:00 15:00 23:00 07:00 15:00 23:00 Intake Total 1740 ml Output Total 700 ml Balance 1040 ml Intake Oral 240 ml IV Total 1500 ml Output Urine Total 700 ml # Bowel Movements 0 Result Diagram: 10/12/17 0010 10/12/17 0010 Imaging Last Impressions Chest X-Ray 10/12/17 0002 Signed Impressions: Service Date/Time: Thursday, October 12, 2017 00:31 - CONCLUSION: No acute disease. Jamel Almazan MD Abdomen/Pelvis CT 10/12/17 0000 Signed Impressions: Service Date/Time: Thursday, October 12, 2017 02:45 - CONCLUSION: 1. Negative CT abdomen pelvis without contrast, except for mild constipation. No significant change from January 2016. Jamel Almazan MD Objective Remarks GENERAL: NAD SKIN: Warm and dry. HEAD: Normocephalic. EYES: No scleral icterus. No injection or drainage. NECK: Supple, trachea midline. No JVD or lymphadenopathy. CARDIOVASCULAR: Regular rate and rhythm without murmurs, gallops, or rubs. RESPIRATORY: Breath sounds equal bilaterally. No accessory muscle use. GASTROINTESTINAL: Abdomen soft, non-tender, nondistended. MUSCULOSKELETAL: No cyanosis, or edema. BACK: Nontender without obvious deformity. No CVA tenderness. A/P Problem List: (1) Hepatic encephalopathy ICD Code: K72.90 - Hepatic failure, unspecified without coma (2) Elevated LFTs ICD Code: R79.89 - Other specified abnormal findings of blood chemistry (3) Alcohol abuse ICD Code: F10.10 - Alcohol abuse, uncomplicated Status: Acute (4) Lactic acidosis ICD Code: E87.2 - Acidosis Assessment and Plan 37-year-old man with 1. Hepatic Encephalopathy: Resolved and continue Lactulose. Monitor ammonia level. Neuro checks q4h 2. Elevated LFTs: likely secondary to chronic alcohol abuse, however eval for Hepatitis, check Hep Profile. GI consultation pending for further evaluation/ recommendations. CT Abd/Pelvis w/ no acute findings, 3. Lactic Acidosis: Resolved 4. Alcohol Abuse: Continue CIWA, Seizure Precautions, MVT/Thiamine/Folate 5. DVT Prophylaxis: SCD/Teds. Nam Gibbs MD Oct 12, 2017 10:51
--- NOTE | 2017-10-12 13:09 | PD.CONS ---
HPI History of Present Illness This is a 37 year old male with hx ETOH abuse, anxiety who presented with complaint of anxiety, chest tightness, back spasms. GI has been consulted for elevated LFTs. he has significantly elevated tbil, AST and ALT. he is complaining of abd pain intermittently but his descriptions are difficult to follow. he seems to be having lower abd pain and "burning" as well as bloating after eating. On exam he is tender diffusely. he admits nausea but no vomiting. Has noticed in the last few days dark urine and pale or park stools. he denies having any ETOH in the last 6 months but told another provider he had been drinking up until 2 weeks ago. he was incarcerated last year. No hx liver problems. NO blood in the stool or black tarry stool. (Caro Luis) PFSH Past Medical History PMH: Anxiety, Depression and Alcohol Abuse Past Surgical History PAST SURGICAL HISTORY: None (Caro Luis) Coded Allergies: penicillin G (Verified Allergy, Severe, Hives, 09/24/17) morphine (Verified Allergy, Intermediate, Nausea/Vomiting, 10/12/17) codeine (Verified Adverse Reaction, Severe, N/V, 09/24/17) Family History PAST FAMILY HISTORY: Reviewed. No h/o DM or CAD Social History PAST SOCIAL HISTORY: denied ETOH in 6 months but per EMR: Heavy alcohol abuse, quit 2 weeks ago. Positive for tobacco. +Marijuana. H/o IVDU. (Caro Luis) Review of Systems Constitutional: COMPLAINS OF: Fatigue Eyes: DENIES: Blurred vision Ears, nose, mouth, throat: DENIES: Hearing loss Respiratory: DENIES: Cough Cardiovascular: DENIES: Chest pain Gastrointestinal: COMPLAINS OF: Abdominal pain, Constipation, Nausea, DENIES: Hematemesis Genitourinary: DENIES: Hematuria Musculoskeletal: COMPLAINS OF: Muscle aches Integumentary: COMPLAINS OF: Abnormal pigmentation Hematologic/lymphatic: DENIES: Bruising Neurologic: DENIES: Abnormal gait Psychiatric: COMPLAINS OF: Confusion (Caro Luis) GI Exam Vitals I&O Vital Signs Date Time Temp Pulse Resp B/P (MAP) Pulse Ox O2 Delivery O2 Flow Rate FiO2 10/12/17 09:16 97.9 57 16 103/62 (76) 98 2/18/18 05:45 57 10/12/17 05:38 Room Air 10/12/17 05:38 97.3 53 16 120/61 (80) 99 10/12/17 05:21 10/12/17 04:43 49 18 100/56 (71) 100 Room Air 10/12/17 04:20 50 18 95/53 (67) 100 Room Air 10/12/17 02:23 51 18 99/52 (68) 100 Room Air 10/12/17 01:41 56 18 96/71 (79) 99 Room Air 10/12/17 00:54 71 20 121/72 (88) 98 Room Air 10/12/17 00:07 100 Room Air 10/12/17 00:02 98.5 79 24 131/80 (97) 100 I/O 10/11/17 10/11/17 10/11/17 10/12/17 10/12/17 10/12/17 07:00 15:00 23:00 07:00 15:00 23:00 Intake Total 1740 ml Output Total 700 ml Balance 1040 ml Intake Oral 240 ml IV Total 1500 ml Output Urine Total 700 ml # Bowel Movements 0 Imaging Last Impressions Chest X-Ray 10/12/17 0002 Signed Impressions: Service Date/Time: Thursday, October 12, 2017 00:31 - CONCLUSION: No acute disease. Jamel Almazan MD Abdomen/Pelvis CT 10/12/17 0000 Signed Impressions: Service Date/Time: Thursday, October 12, 2017 02:45 - CONCLUSION: 1. Negative CT abdomen pelvis without contrast, except for mild constipation. No significant change from January 2016. Jamel Almazan MD Laboratory Test 10/12/17 00:10 10/12/17 00:45 10/12/17 01:00 10/12/17 03:35 White Blood Count 7.4 TH/MM3 Red Blood Count 6.28 MIL/MM3 Hemoglobin 12.9 GM/DL Hematocrit 40.1 % Mean Corpuscular Volume 63.8 FL Mean Corpuscular Hemoglobin 20.5 PG Mean Corpuscular Hemoglobin Concent 32.2 % Red Cell Distribution Width 17.5 % Platelet Count 236 TH/MM3 Mean Platelet Volume 9.3 FL Neutrophils (%) (Auto) 45.0 % Lymphocytes (%) (Auto) 38.4 % Monocytes (%) (Auto) 13.2 % Eosinophils (%) (Auto) 2.1 % Basophils (%) (Auto) 1.3 % Neutrophils # (Auto) 3.3 TH/MM3 Lymphocytes # (Auto) 2.9 TH/MM3 Monocytes # (Auto) 1.0 TH/MM3 Eosinophils # (Auto) 0.2 TH/MM3 Basophils # (Auto) 0.1 TH/MM3 CBC Comment DIFF FINAL Differential Comment Prothrombin Time 11.0 SEC Prothromb Time International Ratio 1.1 RATIO Activated Partial Thromboplast Time 26.8 SEC D-Dimer Quantitative (PE/DVT) LESS THAN 0.19 MG/L FEU Blood Urea Nitrogen 16 MG/DL Creatinine 1.01 MG/DL Random Glucose 134 MG/DL Total Protein 7.7 GM/DL Albumin 4.0 GM/DL Calcium Level 9.1 MG/DL Phosphorus Level 1.5 MG/DL Magnesium Level 1.8 MG/DL Alkaline Phosphatase 116 U/L Aspartate Amino Transf (AST/SGOT) 1932 U/L Alanine Aminotransferase (ALT/SGPT) 3916 U/L Total Bilirubin 7.7 MG/DL Sodium Level 135 MEQ/L Potassium Level 3.3 MEQ/L Chloride Level 98 MEQ/L Carbon Dioxide Level 24.2 MEQ/L Anion Gap 13 MEQ/L Estimat Glomerular Filtration Rate 84 ML/MIN Hemoglobin A1c 5.0 % Lactic Acid Level 2.7 mmol/L 0.7 mmol/L Ammonia 34 MCMOL/L Total Creatine Kinase 109 U/L Creatine Kinase MB 2.7 NG/ML Troponin I LESS THAN 0.02 NG/ML Lipase 138 U/L Acetaminophen Level LESS THAN 2.0 MCG/ML Blood Gas Puncture Site LT RADIAL Blood Gas Patient Temperature 98.6 Blood Gas HCO3 23 mmol/L Blood Gas Base Excess 1.1 mmol/L Blood Gas Oxygen Saturation 97 % Arterial Blood pH 7.61 Arterial Blood Partial Pressure CO2 22 mmHg Arterial Blood Partial Pressure O2 122 mmHG Arterial Blood Oxygen Content 16.5 Vol % Arterial Blood Carboxyhemoglobin 1.4 % Arterial Blood Methemoglobin 0.8 % Blood Gas Hemoglobin 12.0 G/DL Oxygen Delivery Device ROOM AIR Blood Gas Inspired Oxygen 21 % Urine Color YELLOW Urine Turbidity CLEAR Urine pH 6.5 Urine Specific Purchase 1.006 Urine Protein NEG mg/dL Urine Glucose (UA) NEG mg/dL Urine Ketones 10 mg/dL Urine Occult Blood NEG Urine Nitrite NEG Urine Bilirubin NEG Urine Urobilinogen LESS THAN 2.0 MG/DL Urine Leukocyte Esterase NEG Urine RBC LESS THAN 1 /hpf Urine WBC LESS THAN 1 /hpf Microscopic Urinalysis Comment CATH-CULT NOT IND Urine Opiates Screen NEG Urine Barbiturates Screen NEG Urine Amphetamines Screen NEG Urine Benzodiazepines Screen NEG Urine Cocaine Screen NEG Urine Cannabinoids Screen NEG Test 10/12/17 05:00 Triglycerides Level 145 MG/DL Cholesterol Level 109 MG/DL LDL Cholesterol 67 MG/DL HDL Cholesterol 13.3 MG/DL Cholesterol/HDL Ratio 8.19 RATIO Thyroid Stimulating Hormone 3rd Gen 2.150 uIU/ML Acetaminophen Level LESS THAN 2.0 MCG/ML Date/Time Source Procedure Growth Status 10/12/17 00:15 Blood Peripheral Aerobic Blood Culture Pending Received 10/12/17 00:15 Blood Peripheral Anaerobic Blood Culture Pending Received 10/12/17 00:10 Nasal Washing Influenza Types A,B Antigen (VLADISLAV) - Final NEGATIVE FOR FLU A AND B ANTIGEN.... Complete Physical Examination HEENT: PERRL; normocephalic; atraumatic; mild icterus CHEST: CTA CARDIAC: RRR ABDOMEN: Soft, nondistended, Diffusely tender; no hepatosplenomegaly; bowel sounds are present in all four quadrants. EXTREMITIES: No clubbing, cyanosis, or edema. SKIN: Normal; no rash; no jaundice. 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 (Caro LuisP) Assessment and Plan Plan ASSESSMENT - abd pain, nausea, elevated LFTs - elevated Tbil, AST, ALT. abd pain and bloating. etiology unclear at this time. could be hepatitis, hep panel pending and will get liver w/u to r/o other cause. hx of heavy etoh consumption, unclear when his last drink was as he told me not in 6 months but told other provider it had only been 2 weeks. he is also c/o pale or park stools PLAN - MRCP - liver w/u - await hepatitis panel - JARRED - further recs as case unfolds this pt seen by myself and Dr Starks and this note is on her behalf (Caro Luis [facility]) Physician Comments seen, examined admits sharing needles few month ago also reports taking vitamins and supplements lately -we will obtain list suspect viral hepatis close monitoring of lfts, inr, cbc if worsening may need transfer to liver transplant center (Ninfa Starks MD) Caro Luis Oct 12, 2017 13:09 Ninfa Starks MD Oct 12, 2017 18:14
--- NOTE | 2017-10-12 15:25 | EKG ---
Date Performed: 10/12/2017 Time Performed: 00:08:40 PTAGE: 37 years EKG: Sinus rhythm WITH SHORT ID INTERVAL Since previous tracing, no significant change noted BORDERLINE ECG PREVIOUS TRACING : 11/13/2016 21.24 DOCTOR: Noman Mcknight Interpretating Date/Time 10/12/2017 15:24:07
[2017-10-13] VITALS (10 sets, daily range): BP systolic 90–122; BP diastolic 54–61; PULSE 44–64; RESP 18–20; TEMP 97.1–97.9; O2SAT 97–98
[2017-10-13] MEDS: MULTIVITAMINS/MINERALS THERAPEUTIC TAB PO SCH (08:33)
[2017-10-13] MEDS: THIAMINE HCL 100 MG TAB PO SCH (08:33)
[2017-10-13] MEDS: FOLIC ACID 1 MG TAB PO SCH (08:33)
[2017-10-13] MEDS: SODIUM CHLORIDE 0.9% FLUSH 10 ML FLUSH IV FLUSH SCH ×2 (08:33→21:51)
[2017-10-13] MEDS: LACTULOSE SYRUP 20 GM/30 ML CUP PO SCH ×4 (08:34→21:51)
[2017-10-13] MEDS: DOCUSATE SODIUM 50 MG/SENNA 8.6 MG TAB PO SCH ×2 (08:34→21:00)
--- NOTE | 2017-10-13 09:35 | RADRPT ---
EXAM DATE/TIME: 10/13/2017 08:49 [place] COMPARISON: CT ABDOMEN & PELVIS W/O CONTRAST, January 28, 2016, 2:53. CT ABDOMEN & PELVIS W/O CONTRAST, September, 2:45. INDICATIONS : Abdominal pain. MEDICAL HISTORY : None. SURGICAL HISTORY : knee surgery ENCOUNTER: Subsequent ACUITY: 1 week PAIN SCORE: 2/10 LOCATION: upper abdomen TECHNIQUE: Multiplanar, multisequence magnetic resonance imaging of the abdomen was performed. High-resolution 3D dataset was utilized to reconstruct maximum-intensity projection (MIP) images. FINDINGS: INTRAHEPATIC BILE DUCTS: Within normal limits. No significant anatomical variant is present. EXTRAHEPATIC BILE DUCTS: The common bile duct measures 3 mm. No stone or filling defect is identified. GALLBLADDER: No stones, wall thickening, or pericholecystic fluid. LIVER: 1.5 cm area of T2 prolongation in the anterior lower right lobe probably represents a cyst. A simila r low density area was seen on noncontrast CT in January 2006. Differential considerations include cyst and hemangioma. PANCREAS: The main pancreatic duct is normal in size. There is no significant anatomical variant. Signal inte nsity is within normal limits. No mass is visualized on this non-contrast exam. CONCLUSION: 1. No dilation of the intra-or extrahepatic biliary system. 2. 1.5 cm liver cyst or hemangioma anterior right lobe. Mario Dunaway MD on October 13, 2017 at 9:27 Board Certified Radiologist. This report was verified electronically.
[2017-10-13] MEDS ORDERED: INFLUENZA VIRUS VACCINE (QUADRIVALENT) 0.5 ML SYR IM ONE (10:00)
[2017-10-13] MEDS ORDERED: PNEUMOCOCCAL POLYVALENT INJ 25 MCG/0.5 ML SYR IM ONE (10:00)
[2017-10-13 10:22] LABS: AUTOMATED NEUTROPHIL # 2.8 TH/MM3 (1.8-7.7); BASOPHIL # 0.1 TH/MM3 (0-0.2); BASOPHIL % 1.4 % (0.0-2.0); EOSINOPHIL # 0.1 TH/MM3 (0-0.4); EOSINOPHIL % 2.9 % (0.0-4.0); HEMOGLOBIN 13.2 GM/DL (13.0-17.0); LYMPH % 27.7 % (9.0-44.0); LYMPHOCYTE # 1.4 TH/MM3 (1.0-4.8); MEAN CELL VOLUME 65.8 FL (80.0-100.0); MEAN CORPUSCULAR HEMOGLOBIN 21.2 PG (27.0-34.0); MEAN CORPUSCULAR HGB CONC 32.2 % (32.0-36.0); MEAN PLATELET VOLUME 9.5 FL (7.0-11.0); MONO % 12.9 % (0.0-8.0); MONOCYTE # 0.7 TH/MM3 (0-0.9); NEUT % 55.1 % (16.0-70.0); PLATELET COUNT 244 TH/MM3 (150-450); RED BLOOD COUNT 6.22 MIL/MM3 (4.50-5.90); WHITE BLOOD COUNT 5.1 TH/MM3 (4.0-11.0)
--- NOTE | 2017-10-13 10:47 | HHI.PR ---
Subjective Remarks Follow-up hepatic encephalopathy/abdominal pain 10/12/17-patient seen and examined, denies any alcohol abuse. Alert and oriented 3. Denies any significant abdominal pain. Report decreased appetite over the past several weeks. 10/13/17-patient seen and examined, only complains of abdominal bloating. Currently nothing by mouth pending MRCP. Alert and oriented 3. Objective Vitals Vital Signs Date Time Temp Pulse Resp B/P (MAP) Pulse Ox O2 Delivery O2 Flow Rate FiO2 10/13/17 08:00 97.8 49 20 102/57 (72) 98 10/13/17 04:00 97.8 49 20 113/54 (73) 98 10/13/17 04:00 Room Air 10/13/17 03:55 53 10/13/17 00:01 44 10/13/17 00:00 Room Air 10/13/17 00:00 97.1 56 18 90/54 (66) 98 10/12/17 20:32 51 10/12/17 20:00 Room Air 10/12/17 20:00 98.0 55 14 109/64 (79) 99 10/12/17 17:28 97.7 52 17 108/65 (79) 99 10/12/17 13:12 97.5 57 17 115/73 (87) 98 I/O 10/12/17 10/12/17 10/12/17 10/13/17 10/13/17 10/13/17 07:00 15:00 23:00 07:00 15:00 23:00 Intake Total 1740 ml 720 ml 0 ml Output Total 700 ml 500 ml 800 ml Balance 1040 ml 220 ml -800 ml Intake Oral 240 ml 720 ml 0 ml IV Total 1500 ml Output Urine Total 700 ml 500 ml 800 ml # Bowel Movements 0 1 1 Result Diagram: 10/13/17 0955 10/12/17 0010 Imaging Last Impressions Cholangiopancreatography MRI 10/13/17 0000 Signed Impressions: Service Date/Time: Friday, October 13, 2017 08:49 - CONCLUSION: 1. No dilation of the intra-or extrahepatic biliary system. 2. 1.5 cm liver cyst or hemangioma anterior right lobe. Mario Dunaway MD Chest X-Ray 10/12/17 0002 Signed Impressions: Service Date/Time: Thursday, October 12, 2017 00:31 - CONCLUSION: No acute disease. Jamel Almazan MD Abdomen/Pelvis CT 10/12/17 0000 Signed Impressions: Service Date/Time: Thursday, October 12, 2017 02:45 - CONCLUSION: 1. Negative CT abdomen pelvis without contrast, except for mild constipation. No significant change from January 2016. Jamel Almazan MD Objective Remarks GENERAL: NAD SKIN: Warm and dry. HEAD: Normocephalic. EYES: No scleral icterus. No injection or drainage. NECK: Supple, trachea midline. No JVD or lymphadenopathy. CARDIOVASCULAR: Regular rate and rhythm without murmurs, gallops, or rubs. RESPIRATORY: Breath sounds equal bilaterally. No accessory muscle use. GASTROINTESTINAL: Abdomen soft, non-tender, nondistended. MUSCULOSKELETAL: No cyanosis, or edema. BACK: Nontender without obvious deformity. No CVA tenderness. A/P Problem List: (1) Hepatic encephalopathy ICD Code: K72.90 - Hepatic failure, unspecified without coma (2) Elevated LFTs ICD Code: R79.89 - Other specified abnormal findings of blood chemistry (3) Alcohol abuse ICD Code: F10.10 - Alcohol abuse, uncomplicated Status: Acute (4) Lactic acidosis ICD Code: E87.2 - Acidosis Assessment and Plan 37-year-old man with 1. Hepatic Encephalopathy: Resolved and continue Lactulose. Neuro checks q4h 2. Elevated LFTs: likely secondary to chronic alcohol abuse versus viral hepatitis. Hepatitis profile pending and continue with liver w/u. Appreciate input from GI. MRCP this a.m. unremarkable. 3. Lactic Acidosis: Resolved 4. Alcohol Abuse: Continue CIWA, Seizure Precautions, MVT/Thiamine/Folate 5. DVT Prophylaxis: SCD/Teds. Nam Gibbs MD Oct 13, 2017 10:46
[2017-10-13 10:54] LABS: ALBUMIN 3.6 GM/DL (3.4-5.0); BICARBONATE 28.2 MEQ/L (21.0-32.0); BLOOD UREA NITROGEN 9 MG/DL (7-18); CALCIUM 9.3 MG/DL (8.5-10.1); CHLORIDE 104 MEQ/L (98-107); CREATININE 0.87 MG/DL (0.60-1.30); GLOMERULAR FILTRATION RATE 100 ML/MIN (>89); GLUCOSE,RANDOM 89 MG/DL (74-106); IRON (FE) 292 MCG/DL (65-175); SODIUM (NA) 139 MEQ/L (136-145)
[2017-10-13 11:08] LABS: % SATURATION IRON PROFILE 64.8 % (20-50); ALKALINE PHOSPHATASE 109 U/L (45-117); ALT (GPT) 3990 U/L (12-78); AST (GOT) 1894 U/L (15-37); FERRITIN 1930 NG/ML (26-388); TOTAL BILIRUBIN ADULT 6.3 MG/DL (0.2-1.0); TOTAL IRON BINDING CAPACITY 451 MCG/DL (250-450); TOTAL PROTEIN 7.6 GM/DL (6.4-8.2)
--- NOTE | 2017-10-13 11:46 | HHI.GIFU ---
Subjective Remarks Pt resting in bed. c/o bloating. Tolerating diet. Now says he quit his supplements a month ago and that he will not be able to provide any list. (Caro Luis) Objective Vitals I&O Vital Signs Date Time Temp Pulse Resp B/P (MAP) Pulse Ox O2 Delivery O2 Flow Rate FiO2 10/13/17 08:00 97.8 49 20 102/57 (72) 98 10/13/17 04:00 97.8 49 20 113/54 (73) 98 10/13/17 04:00 Room Air 10/13/17 03:55 53 10/13/17 00:01 44 10/13/17 00:00 Room Air 10/13/17 00:00 97.1 56 18 90/54 (66) 98 10/12/17 20:32 51 10/12/17 20:00 Room Air 10/12/17 20:00 98.0 55 14 109/64 (79) 99 10/12/17 17:28 97.7 52 17 108/65 (79) 99 10/12/17 13:12 97.5 57 17 115/73 (87) 98 I/O 10/12/17 10/12/17 10/12/17 10/13/17 10/13/17 10/13/17 07:00 15:00 23:00 07:00 15:00 23:00 Intake Total 1740 ml 720 ml 0 ml Output Total 700 ml 500 ml 800 ml Balance 1040 ml 220 ml -800 ml Intake Oral 240 ml 720 ml 0 ml IV Total 1500 ml Output Urine Total 700 ml 500 ml 800 ml # Bowel Movements 0 1 1 Laboratory Laboratory Tests Test 10/12/17 13:45 10/13/17 09:55 Lactic Acid Level 1.5 White Blood Count 5.1 Red Blood Count 6.22 Hemoglobin 13.2 Hematocrit 41.0 Mean Corpuscular Volume 65.8 Mean Corpuscular Hemoglobin 21.2 Mean Corpuscular Hemoglobin Concent 32.2 Red Cell Distribution Width 18.0 Platelet Count 244 Mean Platelet Volume 9.5 Neutrophils (%) (Auto) 55.1 Lymphocytes (%) (Auto) 27.7 Monocytes (%) (Auto) 12.9 Eosinophils (%) (Auto) 2.9 Basophils (%) (Auto) 1.4 Neutrophils # (Auto) 2.8 Lymphocytes # (Auto) 1.4 Monocytes # (Auto) 0.7 Eosinophils # (Auto) 0.1 Basophils # (Auto) 0.1 CBC Comment DIFF FINAL Differential Comment Blood Urea Nitrogen 9 Creatinine 0.87 Random Glucose 89 Total Protein 7.6 Albumin 3.6 Calcium Level 9.3 Alkaline Phosphatase 109 Aspartate Amino Transf (AST/SGOT) 1894 Alanine Aminotransferase (ALT/SGPT) 3990 Total Bilirubin 6.3 Sodium Level 139 Potassium Level 4.4 Chloride Level 104 Carbon Dioxide Level 28.2 Anion Gap 7 Estimat Glomerular Filtration Rate 100 Iron Level 292 Total Iron Binding Capacity 451 Percent Iron Saturation 64.8 Ferritin 1930 Ammonia 25 Tumor Marker Alpha Fetoprotein 6.6 Date/Time Source Procedure Growth Status 10/12/17 00:15 Blood Peripheral Aerobic Blood Culture - Preliminary NO GROWTH IN 1 DAY Resulted 10/12/17 00:15 Blood Peripheral Anaerobic Blood Culture - Preliminary NO GROWTH IN 1 DAY Resulted 10/12/17 00:10 Nasal Washing Influenza Types A,B Antigen (VLADISLAV) - Final NEGATIVE FOR FLU A AND B ANTIGEN.... Complete Imaging Last Impressions Cholangiopancreatography MRI 10/13/17 0000 Signed Impressions: Service Date/Time: Friday, October 13, 2017 08:49 - CONCLUSION: 1. No dilation of the intra-or extrahepatic biliary system. 2. 1.5 cm liver cyst or hemangioma anterior right lobe. Mairo Dunaway MD Chest X-Ray 10/12/17 0002 Signed Impressions: Service Date/Time: Thursday, October 12, 2017 00:31 - CONCLUSION: No acute disease. Jamel Almazan MD Abdomen/Pelvis CT 10/12/17 0000 Signed Impressions: Service Date/Time: Thursday, October 12, 2017 02:45 - CONCLUSION: 1. Negative CT abdomen pelvis without contrast, except for mild constipation. No significant change from January 2016. Jamel Almazan MD Physical Exam HEENT: PERRL; normocephalic; atraumatic;+icterus CHEST: Chest is clear to auscultation and percussion. CARDIAC: Regular rate and rhythm with no murmur gallop or rubs. ABDOMEN: Soft, nondistended, nontender; no hepatosplenomegaly; bowel sounds are present in all four quadrants. EXTREMITIES: No clubbing, cyanosis, or edema. SKIN: Normal; no rash; + mild jaundice. 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 (Caro Luis) Assessment and Plan Plan ASSESSMENT - abd pain, nausea, elevated LFTs - elevated Tbil, AST, ALT. abd pain and bloating. etiology unclear at this time. could be hepatitis, hep panel pending and will get liver w/u to r/o other cause. hx of heavy etoh consumption, unclear when his last drink was as he told me not in 6 months but told other provider it had only been 2 weeks. he is also c/o pale or park stools 10/13/17 MRCP noted, cyst vs hemangioma, no ductal dilatation. LFTs remain elevated, awaiting hepatitis panel. PLAN - await hepatitis panel - await liver w/u - JARRED - further recs as case unfolds this pt seen by myself and Dr Graham and this note is on his behalf (Caro Lusi) Physician Comments Seen and examined with NILAY, acute hepatitis B on serologies. Reports unprotected sex 6 months ago and ivd 4 months ago. HBV DNA ordered. hep b e Ag. Advance diet, if lfts improving canbe dced home with gi fu in 02 weeks. (Peyton Graham MD) Caro Luis Oct 13, 2017 11:46 Peyton Graham MD Oct 13, 2017 17:44
[2017-10-13 13:45] LABS: HEPATITIS A AB IGM NEGATIVE (NEGATIVE); HEPATITIS B CORE AB IGM REACTIVE (NEGATIVE); HEPATITIS B SURFACE ANTIGEN POSITIVE (NEGATIVE); HEPATITIS C AB IgG NEGATIVE (NEGATIVE)
[2017-10-14] VITALS: BP 100/56; PULSE 50; RESP 18; TEMP 97.6; O2SAT 98
[2017-10-14 03:49] VITALS: PULSE 48
[2017-10-14 04:00] VITALS: BP 97/53; PULSE 54; RESP 14; TEMP 98.4; O2SAT 99
[2017-10-14 08:00] VITALS: BP 112/56; PULSE 53; RESP 20; TEMP 97.2; O2SAT 100
[2017-10-14] MEDS: SODIUM CHLORIDE 0.9% FLUSH 10 ML FLUSH IV FLUSH SCH (09:06)
[2017-10-14] MEDS: DOCUSATE SODIUM 50 MG/SENNA 8.6 MG TAB PO SCH (09:06)
[2017-10-14] MEDS: THIAMINE HCL 100 MG TAB PO SCH (09:06)
[2017-10-14] MEDS: MULTIVITAMINS/MINERALS THERAPEUTIC TAB PO SCH (09:06)
[2017-10-14] MEDS: LACTULOSE SYRUP 20 GM/30 ML CUP PO SCH (09:06)
[2017-10-14] MEDS: FOLIC ACID 1 MG TAB PO SCH (09:06)
--- NOTE | 2017-10-14 10:52 | HHI.PR ---
Subjective Remarks Follow-up hepatic encephalopathy/abdominal pain 10/12/17-patient seen and examined, denies any alcohol abuse. Alert and oriented 3. Denies any significant abdominal pain. Report decreased appetite over the past several weeks. 10/13/17-patient seen and examined, only complains of abdominal bloating. Currently nothing by mouth pending MRCP. Alert and oriented 3. 10/14/17-patient seen and examined, reports significant improvement of abdominal pain. Tolerated by mouth without any competition nausea and vomiting. Patient aware of new diagnosis of acute hepatitis B Objective Vitals Vital Signs Date Time Temp Pulse Resp B/P (MAP) Pulse Ox O2 Delivery O2 Flow Rate FiO2 10/14/17 08:00 97.2 53 20 112/56 (74) 100 10/14/17 04:00 Room Air 10/14/17 04:00 98.4 54 14 97/53 (68) 99 10/14/17 03:49 48 10/14/17 00:00 97.6 50 18 100/56 (71) 98 10/14/17 00:00 Room Air 10/13/17 23:31 46 10/13/17 20:26 52 10/13/17 20:00 97.3 54 18 108/57 (74) 97 10/13/17 20:00 Room Air 10/13/17 16:00 56 10/13/17 16:00 97.4 64 20 111/61 (78) 98 10/13/17 12:00 97.9 58 20 122/58 (79) 98 10/13/17 12:00 60 I/O 10/13/17 10/13/17 10/13/17 10/14/17 10/14/17 10/14/17 06:59 14:59 22:59 06:59 14:59 22:59 Intake Total 0 ml 840 ml 600 ml Output Total 800 ml Balance -800 ml 840 ml 600 ml Intake Oral 0 ml 840 ml 600 ml Output Urine Total 800 ml # Voids 4 2 # Bowel Movements 1 0 Result Diagram: 10/13/17 0955 10/13/17 0955 Imaging Last Impressions Cholangiopancreatography MRI 10/13/17 0000 Signed Impressions: Service Date/Time: Friday, October 13, 2017 08:49 - CONCLUSION: 1. No dilation of the intra-or extrahepatic biliary system. 2. 1.5 cm liver cyst or hemangioma anterior right lobe. Mario Dunaway MD Chest X-Ray 10/12/17 0002 Signed Impressions: Service Date/Time: Thursday, October 12, 2017 00:31 - CONCLUSION: No acute disease. Jamel Almazan MD Abdomen/Pelvis CT 10/12/17 0000 Signed Impressions: Service Date/Time: Thursday, October 12, 2017 02:45 - CONCLUSION: 1. Negative CT abdomen pelvis without contrast, except for mild constipation. No significant change from January 2016. Jamel Almazan MD Objective Remarks GENERAL: NAD SKIN: Warm and dry. HEAD: Normocephalic. EYES: No scleral icterus. No injection or drainage. NECK: Supple, trachea midline. No JVD or lymphadenopathy. CARDIOVASCULAR: Regular rate and rhythm without murmurs, gallops, or rubs. RESPIRATORY: Breath sounds equal bilaterally. No accessory muscle use. GASTROINTESTINAL: Abdomen soft, non-tender, nondistended. +BS MUSCULOSKELETAL: No cyanosis, or edema. BACK: Nontender without obvious deformity. No CVA tenderness. Procedures None A/P Problem List: (1) Hepatic encephalopathy ICD Code: K72.90 - Hepatic failure, unspecified without coma (2) Elevated LFTs ICD Code: R79.89 - Other specified abnormal findings of blood chemistry (3) Alcohol abuse ICD Code: F10.10 - Alcohol abuse, uncomplicated Status: Acute (4) Lactic acidosis ICD Code: E87.2 - Acidosis (5) Hepatitis B infection ICD Code: B19.10 - Unspecified viral hepatitis B without hepatic coma Assessment and Plan 37-year-old man with 1. Hepatic Encephalopathy: Resolved and continue Lactulose. Neuro checks q4h 2. Acute hepatitis B: Hepatitis B antigen and Core positives. Appreciate input from GI. MRCP. unremarkable. Continue to monitor LFTs. HIV pending from [facility] 3. Lactic Acidosis: Resolved 4. Alcohol Abuse: Continue CIWA, Seizure Precautions, MVT/Thiamine/Folate 5. DVT Prophylaxis: SCD/Teds. Nam Gibbs MD Oct 14, 2017 10:52
--- NOTE | 2017-10-14 10:56 | HHI.DS ---
Discharge Summary Admission Date Oct 12, 2017 at 04:28 Discharge Date: Oct 14, 2017 Admitting Diagnosis Elevated LFT's/Alcohol Abuse (1) Hepatic encephalopathy ICD Code: K72.90 - Hepatic failure, unspecified without coma (2) Elevated LFTs ICD Code: R79.89 - Other specified abnormal findings of blood chemistry (3) Alcohol abuse ICD Code: F10.10 - Alcohol abuse, uncomplicated Status: Acute (4) Lactic acidosis ICD Code: E87.2 - Acidosis (5) Hepatitis B infection ICD Code: B19.10 - Unspecified viral hepatitis B without hepatic coma Procedures None Brief History - From Admission This is a 37-year-old male with a PMH of Anxiety, Depression and Alcohol Abuse who presented to ER with complaints of generalized malaise in addition to episodes of confusion and feeling "foggy". States symptoms have been ongoing for a few weeks. Seen in ER on 09/24/17 for similar complaints, found to have transaminitis at that time and d/c'd, states he followed up w/ [facility] and had Hepatitis Panel however does not know results. Now w/ progressive symptoms. Reports drinking 1 pint voda or 15-20 beers per day for the last 1yr, however has been unable to drink in the last 2wks due to symptoms. Denies fever, chills, nausea, vomiting or diarrhea. On arrival, BP 96/71, HR 56, O2 sat 99% on RA, Afebrile. CBC essentially at baseline. Chemistry unremarkable except for GFR 84. Lactic Acid 2.7. AST 1932, ALT 3916 , ALP 116, Total Bili 7.7. Ammonia 34. INR 1.1. UA negative. Urine Drug Screen negative. CXR with no acute findings. CT Abdomen/Pelvis negative. S/p IVF in ER. CBC/BMP: 10/13/17 0955 10/13/17 0955 Significant Findings Laboratory Tests Test 10/12/17 00:10 10/12/17 00:45 10/12/17 01:00 10/12/17 03:35 Red Blood Count 6.28 MIL/MM3 (4.50-5.90) Hemoglobin 12.9 GM/DL (13.0-17.0) Mean Corpuscular Volume 63.8 FL (80.0-100.0) Mean Corpuscular Hemoglobin 20.5 PG (27.0-34.0) Red Cell Distribution Width 17.5 % (11.6-17.2) Monocytes (%) (Auto) 13.2 % (0.0-8.0) Monocytes # (Auto) 1.0 TH/MM3 (0-0.9) Random Glucose 134 MG/DL (74-106) Phosphorus Level 1.5 MG/DL (2.5-4.9) Aspartate Amino Transf (AST/SGOT) 1932 U/L (15-37) Alanine Aminotransferase (ALT/SGPT) 3916 U/L (12-78) Total Bilirubin 7.7 MG/DL (0.2-1.0) Sodium Level 135 MEQ/L (136-145) Potassium Level 3.3 MEQ/L (3.5-5.1) Estimat Glomerular Filtration Rate 84 ML/MIN (>89) Lactic Acid Level 2.7 mmol/L (0.4-2.0) Ammonia 34 MCMOL/L (11-32) Troponin I LESS THAN 0.02 NG/ML Acetaminophen Level LESS THAN 2.0 MCG/ML Arterial Blood pH 7.61 (7.380-7.420) Arterial Blood Partial Pressure CO2 22 mmHg (38-42) Arterial Blood Partial Pressure O2 122 mmHG (61-120) Urine Ketones 10 mg/dL (NEG) Test 10/12/17 05:00 10/12/17 13:45 10/13/17 09:55 Cholesterol Level 109 MG/DL (120-200) HDL Cholesterol 13.3 MG/DL (40.0-60.0) Acetaminophen Level LESS THAN 2.0 MCG/ML Hepatitis B Surface Antigen POSITIVE (NEGATIVE) Hepatitis B Core IgM Antibody REACTIVE (NEGATIVE) Red Blood Count 6.22 MIL/MM3 (4.50-5.90) Mean Corpuscular Volume 65.8 FL (80.0-100.0) Mean Corpuscular Hemoglobin 21.2 PG (27.0-34.0) Red Cell Distribution Width 18.0 % (11.6-17.2) Monocytes (%) (Auto) 12.9 % (0.0-8.0) Aspartate Amino Transf (AST/SGOT) 1894 U/L (15-37) Alanine Aminotransferase (ALT/SGPT) 3990 U/L (12-78) Total Bilirubin 6.3 MG/DL (0.2-1.0) Iron Level 292 MCG/DL (65-175) Total Iron Binding Capacity 451 MCG/DL (250-450) Percent Iron Saturation 64.8 % (20-50) Ferritin 1930 NG/ML (26-388) Imaging Last Impressions Cholangiopancreatography MRI 10/13/17 0000 Signed Impressions: Service Date/Time: Friday, October 13, 2017 08:49 - CONCLUSION: 1. No dilation of the intra-or extrahepatic biliary system. 2. 1.5 cm liver cyst or hemangioma anterior right lobe. Mario Dunaway MD Chest X-Ray 10/12/17 0002 Signed Impressions: Service Date/Time: Thursday, October 12, 2017 00:31 - CONCLUSION: No acute disease. Jamel Almazan MD Abdomen/Pelvis CT 10/12/17 0000 Signed Impressions: Service Date/Time: Thursday, October 12, 2017 02:45 - CONCLUSION: 1. Negative CT abdomen pelvis without contrast, except for mild constipation. No significant change from January 2016. Jamel Almazan MD PE at Discharge GENERAL: NAD SKIN: Warm and dry. HEAD: Normocephalic. EYES: No scleral icterus. No injection or drainage. NECK: Supple, trachea midline. No JVD or lymphadenopathy. CARDIOVASCULAR: Regular rate and rhythm without murmurs, gallops, or rubs. RESPIRATORY: Breath sounds equal bilaterally. No accessory muscle use. GASTROINTESTINAL: Abdomen soft, non-tender, nondistended. +BS MUSCULOSKELETAL: No cyanosis, or edema. BACK: Nontender without obvious deformity. No CVA tenderness. Hospital Course Patient was admitted secondary to hepatic encephalopathy treated with Lactulose and was diagnosed with acute hepatitis B for which gastroenterology was consulted. Patient's conditions improved prior to discharge and vitals remained stable. He will need follow-up outpatient with hepatology. Pt Condition on Discharge: Stable Discharge Disposition: Discharge Home Discharge Time: <= 30 minutes Discharge Instructions DIET: Follow Instructions for: Heart Healthy Diet Activities you can perform: Regular-No Restrictions Follow up Referrals: Gastroenterology - 2 Weeks PCP Follow-up - 1 Week New Medications: Folic Acid (Folic Acid) 1 Mg Tablet 1 MG PO DAILY for Alcohol Detox, #30 MG Thiamine HCl (Gnp Vitamin B-1) 100 Mg Tab 100 MG PO DAILY for Alcohol Detox, #30 TAB Nam Gibbs MD Oct 14, 2017 10:56
[2017-10-14] MEDS ORDERED: FOLI1TAB6 PO (10:59)
[2017-10-14] MEDS ORDERED: THIA100 PO (10:59)
[2017-10-14 12:47] LABS: ALPHA-1-ANTITRYPSIN 177 mg/dL (100 - 190)
[2017-10-14 13:20] LABS: SMOOTH MUSCLE TOTAL AUTOABS Negative (Negative)
[2017-10-16 23:53] LABS: MITOCHONDRIAL ABS LESS THAN 20.0 U (<=20.0)
[2017-10-17 15:52] LABS: CERULOPLASMIN 45 mg/dL (18-36)
== END 2017-10-14 12:35 | disposition home or self-care (01) | DRG 442 ==
LOC: NEPC 23:55 → NEDA 10-12 04:28 → N04A 10-12 05:27
PROVIDERS: ADMIT Hospitalist; ATTEND Hospitalist
DX: K72.90 Hepatic failure, unspecified without coma (principal); B16.9 Acute hepatitis B without delta-agent and without hepatic coma; E87.2 Acidosis; F10.10 Alcohol abuse, uncomplicated; E86.0 Dehydration; F41.1 Generalized anxiety disorder; Z72.0 Tobacco use; Z23 Encounter for immunization; Y90.9 Presence of alcohol in blood, level not specified
CPT/HCPCS: 36600; 71045; 74176; 74181; 76377; 80053; 80061; 80074; 80307; 81001; 82103; 82105; 82140; 82390; 82550; 82552; 82728; 82805; 82948; 83036; 83520; 83540; 83550; 83605; 83690; 83735; 84100; 84443; 84484; 85025; 85379; 85610; 85730; 86038; 86255; 87040; 87804; 90686; 90732; 93005; J2270; J2405; J7030; J7060; Q2038

== ENCOUNTER 2017-12-17 15:35 | Emergency (ER) | payer SELFPAY ==
[~2017-12-17 15:35] MED LIST changes: +FOLI1TAB6 PO; -REME15TA PO; +THIA100 PO
[2017-12-17 15:57] VITALS: BP 153/86; PULSE 92; RESP 16; TEMP 97.8; O2SAT 100
[2017-12-17 16:08] VITALS: BP 145/82; PULSE 94; RESP 24; O2SAT 100
[2017-12-17] MEDS ORDERED: LORazepam 2 MG/ML VIAL IV PUSH ONE (16:15)
[2017-12-17] MEDS ORDERED: SODIUM CHLORIDE 0.9% FLUSH 10 ML FLUSH IVF PRN (16:15)
[2017-12-17] MEDS ORDERED: SODIUM CHLOR 0.9% 1000 ML INJ 1,000 ML IV ONE (16:15)
--- NOTE | 2017-12-17 16:20 | PD ---
HPI Chief Complaint: Medical Clearance Time Seen by Provider: 16:14 Travel History International Travel<30 days: No Contact w/Intl Traveler<30days: No Traveled to known affect area: No History of Present Illness HPI 37-year-old male patient with history of alcohol abuse, hepatitis, presents to the ER today because he has been feeling very anxious, having palpitations, aches and pains all over his body, paresthesias, feels shaky, states that he had tried to cut down his alcohol use but not today. He has had alcohol about 4 hours prior to arrival. He has not had any history of seizures with cutting down on alcohol in the past. Modifying Factors: None Associated Signs & Symptoms: Palpitations, anxiety, body aches, feeling shaky Risk Factors: Alcohol abuse PFSH Past Medical History Anxiety: Yes Depression: Yes Cancer: No Cardiovascular Problems: No Diabetes: No Diminished Hearing: No Endocrine: No Gastrointestinal Disorders: Yes Genitourinary: No Headaches: Yes Hepatitis: Yes (C) Immune Disorder: No Musculoskeletal: Yes Neurologic: Yes Psychiatric: Yes Reproductive: No Respiratory: No Immunizations Current: Yes Migraines: Yes ?: Not Past Surgical History Other Surgery: No Social History Alcohol Use: Yes Tobacco Use: Yes Substance Use: Yes (CRACK) Allergies-Medications (Allergen,Severity, Reaction): Coded Allergies: penicillin G (Verified Allergy, Severe, Hives, 12/17/17) morphine (Verified Allergy, Intermediate, Nausea/Vomiting, 12/17/17) codeine (Verified Adverse Reaction, Severe, N/V, 12/17/17) Reported Meds & Prescriptions Reported Meds & Active Scripts Active Folic Acid 1 Mg Tablet 1 Mg PO DAILY Gnp Vitamin B-1 (Thiamine HCl) 100 Mg Tab 100 Mg PO DAILY Review of Systems Except as stated in HPI: all other systems reviewed are Neg Physical Exam Narrative GENERAL: Well-developed middle-age male patient currently appears anxious, in moderate distress. Awake and oriented 3. Appears tremulous. SKIN: Focused skin assessment warm/dry. HEAD: Atraumatic. Normocephalic. EYES: Pupils equal and round. No scleral icterus. No injection or drainage. ENT: No nasal bleeding or discharge. Mucous membranes pink and moist. NECK: Trachea midline. No JVD. Supple. CARDIOVASCULAR: Regular rate and rhythm. No murmur appreciated. RESPIRATORY: No accessory muscle use. Clear to auscultation. Breath sounds equal bilaterally. GASTROINTESTINAL: Abdomen soft, non-tender, nondistended. Hepatic and splenic margins not palpable. MUSCULOSKELETAL: No obvious deformities. No clubbing. No cyanosis. No edema. NEUROLOGICAL: Awake and alert. No obvious cranial nerve deficits. Motor grossly within normal limits. Normal speech. PSYCHIATRIC: Anxious mood and affect; insight and judgment poor. Data Data Last Documented VS Vital Signs Date Time Temp Pulse Resp B/P (MAP) Pulse Ox O2 Delivery O2 Flow Rate FiO2 12/17/17 18:45 66 18 129/68 (88) 99 Room Air 12/17/17 15:57 97.8 Orders Orders Electrocardiogram (12/17/17 16:15) Complete Blood Count With Diff (12/17/17 16:15) Comprehensive Metabolic Panel (12/17/17 16:15) Magnesium (Mg) (12/17/17 16:15) Chest, Single Ap (12/17/17 16:15) Ecg Monitoring (12/17/17 16:15) Iv Access Insert/Monitor (12/17/17 16:15) Oximetry (12/17/17 16:15) Sodium Chloride 0.9% Flush (Ns Flush) (12/17/17 16:15) Sodium Chlor 0.9% 1000 Ml Inj (Ns 1000 M (12/17/17 16:15) Drug Screen, Random Urine (12/17/17 16:15) Alcohol (Ethanol) (12/17/17 16:15) Lorazepam Inj (Ativan Inj) (12/17/17 16:15) Psych Screen (12/17/17 19:07) Labs Laboratory Tests Test 12/17/17 16:30 White Blood Count 10.3 TH/MM3 Red Blood Count 6.19 MIL/MM3 Hemoglobin 13.3 GM/DL Hematocrit 41.5 % Mean Corpuscular Volume 67.1 FL Mean Corpuscular Hemoglobin 21.5 PG Mean Corpuscular Hemoglobin Concent 32.1 % Red Cell Distribution Width 14.6 % Platelet Count 240 TH/MM3 Mean Platelet Volume 9.5 FL Neutrophils (%) (Auto) 72.0 % Lymphocytes (%) (Auto) 19.7 % Monocytes (%) (Auto) 6.6 % Eosinophils (%) (Auto) 0.9 % Basophils (%) (Auto) 0.8 % Neutrophils # (Auto) 7.4 TH/MM3 Lymphocytes # (Auto) 2.0 TH/MM3 Monocytes # (Auto) 0.7 TH/MM3 Eosinophils # (Auto) 0.1 TH/MM3 Basophils # (Auto) 0.1 TH/MM3 CBC Comment DIFF FINAL Differential Comment Blood Urea Nitrogen 12 MG/DL Creatinine 1.21 MG/DL Random Glucose 145 MG/DL Total Protein 7.5 GM/DL Albumin 3.8 GM/DL Calcium Level 9.4 MG/DL Magnesium Level 1.9 MG/DL Alkaline Phosphatase 58 U/L Aspartate Amino Transf (AST/SGOT) 42 U/L Alanine Aminotransferase (ALT/SGPT) 32 U/L Total Bilirubin 0.8 MG/DL Sodium Level 137 MEQ/L Potassium Level 4.4 MEQ/L Chloride Level 102 MEQ/L Carbon Dioxide Level 25.2 MEQ/L Anion Gap 10 MEQ/L Estimat Glomerular Filtration Rate 68 ML/MIN Ethyl Alcohol Level LESS THAN 3 MG/DL MDM Medical Decision Making Medical Screen Exam Complete: Yes Emergency Medical Condition: Yes Medical Record Reviewed: Yes Interpretation(s) EKG shows normal sinus rhythm at a rate of 80 bpm with LVH. No signs of acute ST elevations or depressions. Laboratory Tests Test 12/17/17 16:30 Red Blood Count 6.19 MIL/MM3 (4.50-5.90) Mean Corpuscular Volume 67.1 FL (80.0-100.0) Mean Corpuscular Hemoglobin 21.5 PG (27.0-34.0) Neutrophils (%) (Auto) 72.0 % (16.0-70.0) Random Glucose 145 MG/DL (74-106) Aspartate Amino Transf (AST/SGOT) 42 U/L (15-37) Estimat Glomerular Filtration Rate 68 ML/MIN (>89) Last 24 hours Impressions Chest X-Ray 12/17/17 1615 Signed Impressions: Service Date/Time: Sunday, December 17, 2017 16:26 - CONCLUSION: Normal examination. Stanley Shea MD Differential Diagnosis Anxiety attack versus dysrhythmias versus metabolic issues versus dehydration versus alcohol withdrawal Narrative Course Patient appears to be fairly anxious and may have some underlying withdrawal as well. He was given Ativan in the ER. On reevaluation at 7 PM, he is feeling improved but he states to me now that he is suicidal and has been having suicidal ideation and that is why he has been drinking. He also states he takes cocaine. At this point, my plan would be to Flaherty act him and have him seen by psychiatry. He is medically cleared from my standpoint. Diagnosis Primary Impression: Alcohol abuse Additional Impressions: Cocaine abuse Suicidal ideation Disposition: 65 DISC TO PSYCH CARE FACILITY Condition: Stable Ervin Amador MD Dec 17, 2017 16:20
[2017-12-17 16:35] VITALS: O2SAT 100
--- NOTE | 2017-12-17 16:57 | RADRPT ---
EXAM DATE/TIME: 12/17/2017 16:26 [facility] COMPARISON: CHEST SINGLE AP, October 12, 2017, 0:31. INDICATIONS : Palpitations. MEDICAL HISTORY : Hepatitis C. SURGICAL HISTORY : None. ENCOUNTER: Initial ACUITY: 3 days PAIN SCORE: 6/10 LOCATION: Bilateral chest FINDINGS: A single view of the chest demonstrates the lungs to be symmetrically aerated without evidence of mas s, infiltrate or effusion. The cardiomediastinal contours are unremarkable. Osseous structures are intact. CONCLUSION: Normal examination. Stanley Shea MD on December 17, 2017 at 16:54 Board Certified Radiologist. This report was verified electronically.
[2017-12-17 17:27] LABS: AUTOMATED NEUTROPHIL # 7.4 TH/MM3 (1.8-7.7); BASOPHIL # 0.1 TH/MM3 (0-0.2); BASOPHIL % 0.8 % (0.0-2.0); EOSINOPHIL # 0.1 TH/MM3 (0-0.4); EOSINOPHIL % 0.9 % (0.0-4.0); HEMATOCRIT 41.5 % (39.0-51.0); HEMOGLOBIN 13.3 GM/DL (13.0-17.0); LYMPH % 19.7 % (9.0-44.0); MEAN CELL VOLUME 67.1 FL (80.0-100.0); MEAN CORPUSCULAR HEMOGLOBIN 21.5 PG (27.0-34.0); MEAN CORPUSCULAR HGB CONC 32.1 % (32.0-36.0); MEAN PLATELET VOLUME 9.5 FL (7.0-11.0); MONO % 6.6 % (0.0-8.0); MONOCYTE # 0.7 TH/MM3 (0-0.9); PLATELET COUNT 240 TH/MM3 (150-450); RED BLOOD COUNT 6.19 MIL/MM3 (4.50-5.90); RED CELL DISTRIBUTION WIDTH 14.6 % (11.6-17.2); WHITE BLOOD COUNT 10.3 TH/MM3 (4.0-11.0)
[2017-12-17 17:46] LABS: ALT (GPT) 32 U/L (12-78)
[2017-12-17 17:48] LABS: ALKALINE PHOSPHATASE 58 U/L (45-117); TOTAL BILIRUBIN ADULT 0.8 MG/DL (0.2-1.0); TOTAL PROTEIN 7.5 GM/DL (6.4-8.2)
[2017-12-17 17:51] LABS: ALBUMIN 3.8 GM/DL (3.4-5.0); AST (GOT) 42 U/L (15-37); BICARBONATE 25.2 MEQ/L (21.0-32.0); BLOOD UREA NITROGEN 12 MG/DL (7-18); CALCIUM 9.4 MG/DL (8.5-10.1); CHLORIDE 102 MEQ/L (98-107); CREATININE 1.21 MG/DL (0.60-1.30); GLOMERULAR FILTRATION RATE 68 ML/MIN (>89); GLUCOSE,RANDOM 145 MG/DL (74-106); MAGNESIUM 1.9 MG/DL (1.5-2.5); SODIUM (NA) 137 MEQ/L (136-145)
[2017-12-17 18:45] VITALS: BP 129/68; PULSE 66; RESP 18; O2SAT 99
[2017-12-18 07:10] VITALS: BP 128/76; PULSE 72; RESP 16; O2SAT 99
--- NOTE | 2017-12-18 10:10 | PD ---
Physical Exam Date Seen by Provider: Dec 18, 2017 Time Seen by Provider: 10:06 Narrative 37-year-old male who is brought under a Flaherty act for substance-induced mood disorder with suicidal ideation. Patient has been medically cleared by the psychiatrist. Data Data Last Documented VS Vital Signs Date Time Temp Pulse Resp B/P (MAP) Pulse Ox O2 Delivery O2 Flow Rate FiO2 12/18/17 07:10 72 16 128/76 (93) 99 Room Air 12/17/17 15:57 97.8 Orders Orders Electrocardiogram (12/17/17 16:15) Complete Blood Count With Diff (12/17/17 16:15) Comprehensive Metabolic Panel (12/17/17 16:15) Magnesium (Mg) (12/17/17 16:15) Chest, Single Ap (12/17/17 16:15) Ecg Monitoring (12/17/17 16:15) Iv Access Insert/Monitor (12/17/17 16:15) Oximetry (12/17/17 16:15) Sodium Chloride 0.9% Flush (Ns Flush) (12/17/17 16:15) Sodium Chlor 0.9% 1000 Ml Inj (Ns 1000 M (12/17/17 16:15) Drug Screen, Random Urine (12/17/17 16:15) Alcohol (Ethanol) (12/17/17 16:15) Lorazepam Inj (Ativan Inj) (12/17/17 16:15) Psych Screen (12/17/17 19:07) Diet Regular Basic (12/18/17 Breakfast) Labs Laboratory Tests Test 12/17/17 16:30 12/17/17 19:29 White Blood Count 10.3 TH/MM3 Red Blood Count 6.19 MIL/MM3 Hemoglobin 13.3 GM/DL Hematocrit 41.5 % Mean Corpuscular Volume 67.1 FL Mean Corpuscular Hemoglobin 21.5 PG Mean Corpuscular Hemoglobin Concent 32.1 % Red Cell Distribution Width 14.6 % Platelet Count 240 TH/MM3 Mean Platelet Volume 9.5 FL Neutrophils (%) (Auto) 72.0 % Lymphocytes (%) (Auto) 19.7 % Monocytes (%) (Auto) 6.6 % Eosinophils (%) (Auto) 0.9 % Basophils (%) (Auto) 0.8 % Neutrophils # (Auto) 7.4 TH/MM3 Lymphocytes # (Auto) 2.0 TH/MM3 Monocytes # (Auto) 0.7 TH/MM3 Eosinophils # (Auto) 0.1 TH/MM3 Basophils # (Auto) 0.1 TH/MM3 CBC Comment DIFF FINAL Differential Comment Blood Urea Nitrogen 12 MG/DL Creatinine 1.21 MG/DL Random Glucose 145 MG/DL Total Protein 7.5 GM/DL Albumin 3.8 GM/DL Calcium Level 9.4 MG/DL Magnesium Level 1.9 MG/DL Alkaline Phosphatase 58 U/L Aspartate Amino Transf (AST/SGOT) 42 U/L Alanine Aminotransferase (ALT/SGPT) 32 U/L Total Bilirubin 0.8 MG/DL Sodium Level 137 MEQ/L Potassium Level 4.4 MEQ/L Chloride Level 102 MEQ/L Carbon Dioxide Level 25.2 MEQ/L Anion Gap 10 MEQ/L Estimat Glomerular Filtration Rate 68 ML/MIN Ethyl Alcohol Level LESS THAN 3 MG/DL Urine Opiates Screen NEG Urine Barbiturates Screen NEG Urine Amphetamines Screen NEG Urine Benzodiazepines Screen NEG Urine Cocaine Screen NEG Urine Cannabinoids Screen POS MDM Medical Record Reviewed: Yes Supervised Visit with LEONEL: No Narrative Course 37-year-old male presents with suicidal ideation. Patient has history of polysubstance abuse. His Flaherty act has been lifted. The patient is willing to go to rehab. We have arranged for him to go to [facility]. He will be discharged and taken to start enlargement for polysubstance abuse. Diagnosis Primary Impression: Alcohol abuse Additional Impressions: Cocaine abuse Suicidal ideation Additional Instruction: Return as needed. Disposition: 65 DISC TO PSYCH CARE FACILITY Condition: Stable Jhony Cline MD Dec 18, 2017 10:10
--- NOTE | 2017-12-18 15:28 | PD.PSY.CON ---
Provisional Diagnosis Admission Date Stuart I. Polysubstance dependence including cocaine, marijuana and alcohol Stuart II. 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 Hepatitis B History of Present Illness Service Psychiatry Consult Requested By ER Reason for Consult Suicidal ideation Primary Care Physician No Primary Care Physician HPI The patient is a 37-year-old man, domiciled in [place] with friends, unemployed, single, with psychiatric history of polysubstance dependence including cocaine, marijuana and alcohol, no previous psychiatric hospitalizations, no previous suicide attempts, multiple incarcerations in the past, medical history of hepatitis B, who presents to the ER today because he has been feeling very anxious, having palpitations, aches and pains all over his body, paresthesias, feels shaky, states that he had tried to cut down his alcohol use but not today. He has had alcohol about 4 hours prior to arrival. He has not had any history of seizures with cutting down on alcohol in the past. On psychiatric evaluation today the patient is calm, cooperative, he is not visibly withdrawn. The patient is clinically sober, he reports feeling better today. Patient states that he is motivated to be transferred to detox. Patient reports that he needs to finish the use of alcohol. He denies suicidal or homicidal ideation, he denies visual and auditory hallucinations Review of Systems Constitutional: DENIES: Diaphoretic episodes, Fatigue, Fever, Weight gain, Weight loss, Chills, Dizziness, Change in appetite, Night Sweats Endocrine: DENIES: Heat/cold intolerance, Polydipsia, Polyuria, Polyphagia Eyes: DENIES: Blurred vision, Diplopia, Eye inflammation, Eye pain, Vision loss , Photosensitivity, Double Vision Ears, nose, mouth, throat: DENIES: Tinnitus, Hearing loss, Vertigo, Nasal discharge, Oral lesions, Throat pain, Hoarseness, Ear Pain, Running Nose, Epistaxis, Sinus Pain, Toothache, Odynophagia Respiratory: DENIES: Apneas, Cough, Snoring, Wheezing, Hemoptysis, Sputum production, Shortness of breath Cardiovascular: DENIES: Chest pain, Palpitations, Syncope, Dyspnea on Exertion , PND, Lower Extremity Edema, Orthopnea, Claudication Gastrointestinal: DENIES: Abdominal pain, Black stools, Bloody stools, Constipation, Diarrhea, Nausea, Vomiting, Difficulty Swallowing, Anorexia Genitourinary: DENIES: Sexual dysfunction, Urinary frequency, Urinary incontinence, Urgency, Hematuria, Dysuria, Nocturia, Penile Discharge, Testicular Pain, Testicular Swelling Musculoskeletal: DENIES: Joint pain, Muscle aches, Stiffness, Joint Swelling, Back pain, Neck pain Integumentary: DENIES: Abnormal pigmentation, Nail changes, Pruritus, Rash Hematologic/lymphatic: DENIES: Bruising, Lymphadenopathy Immunologic/allergic: DENIES: Eczema, Urticaria Neurologic: DENIES: Abnormal gait, Headache, Localized weakness, Paresthesias, Seizures, Speech Problems, Tremor, Poor Balance Psychiatric: DENIES: Anxiety, Confusion, Mood changes, Depression, Hallucinations, Agitation, Suicidal Ideation, Homicidal Ideation, Delusions Past Family Social History Coded Allergies: penicillin G (Verified Allergy, Severe, Hives, 12/17/17) morphine (Verified Allergy, Intermediate, Nausea/Vomiting, 12/17/17) codeine (Verified Adverse Reaction, Severe, N/V, 12/17/17) Active Scripts Folic Acid (Folic Acid) 1 Mg Tablet, 1 MG PO DAILY for Alcohol Detox, #30 MG Prov:Nam Gibbs MD 10/14/17 Thiamine HCl (Gnp Vitamin B-1) 100 Mg Tab, 100 MG PO DAILY for Alcohol Detox, # 30 TAB Prov:Nam Gibbs MD 10/14/17 Family Psych History His mother is bipolar Social History Patient was born and raised in [place], he losing [place] with friends, unemployed, single, his highest level of education is ninth grade Patient's Strengths (min. 2) Verbal communication Physical Exam Vital Signs Vital Signs Date Time Temp Pulse Resp B/P (MAP) Pulse Ox O2 Delivery O2 Flow Rate FiO2 12/18/17 10:30 12/18/17 07:10 72 16 99 Room Air 12/17/17 15:57 97.8 Lab Results Test 12/17/17 16:30 12/17/17 19:29 White Blood Count 10.3 TH/MM3 Red Blood Count 6.19 MIL/MM3 Hemoglobin 13.3 GM/DL Hematocrit 41.5 % Mean Corpuscular Volume 67.1 FL Mean Corpuscular Hemoglobin 21.5 PG Mean Corpuscular Hemoglobin Concent 32.1 % Red Cell Distribution Width 14.6 % Platelet Count 240 TH/MM3 Mean Platelet Volume 9.5 FL Neutrophils (%) (Auto) 72.0 % Lymphocytes (%) (Auto) 19.7 % Monocytes (%) (Auto) 6.6 % Eosinophils (%) (Auto) 0.9 % Basophils (%) (Auto) 0.8 % Neutrophils # (Auto) 7.4 TH/MM3 Lymphocytes # (Auto) 2.0 TH/MM3 Monocytes # (Auto) 0.7 TH/MM3 Eosinophils # (Auto) 0.1 TH/MM3 Basophils # (Auto) 0.1 TH/MM3 CBC Comment DIFF FINAL Differential Comment Blood Urea Nitrogen 12 MG/DL Creatinine 1.21 MG/DL Random Glucose 145 MG/DL Total Protein 7.5 GM/DL Albumin 3.8 GM/DL Calcium Level 9.4 MG/DL Magnesium Level 1.9 MG/DL Alkaline Phosphatase 58 U/L Aspartate Amino Transf (AST/SGOT) 42 U/L Alanine Aminotransferase (ALT/SGPT) 32 U/L Total Bilirubin 0.8 MG/DL Sodium Level 137 MEQ/L Potassium Level 4.4 MEQ/L Chloride Level 102 MEQ/L Carbon Dioxide Level 25.2 MEQ/L Anion Gap 10 MEQ/L Estimat Glomerular Filtration Rate 68 ML/MIN Ethyl Alcohol Level LESS THAN 3 MG/DL Urine Opiates Screen NEG Urine Barbiturates Screen NEG Urine Amphetamines Screen NEG Urine Benzodiazepines Screen NEG Urine Cocaine Screen NEG Urine Cannabinoids Screen POS Mental Status Examination Appearance: Appropriate Consciousness: Alert Orientation: x4 Motor Activity: Normal gait Speech: Unremarkable Language: Adequate Fund of Knowledge: Adequate Attention and Concentration: Adequate Memory: Unremarkable Mood: Appropriate Affect: Appropriate Thought Process & Associations: Intact Thought Content: Appropriate Hallucination Type: None Delusion Type: None Suicidal Ideation: No Suicidal Plan: No Suicidal Intention: No Homicidal Ideation: No Homicidal Plan: No Homicidal Intention: No Insight: Adequate Judgment: Adequate Assessment & Plan Problem List: (1) Substance induced mood disorder ICD Codes: F19.94 - Other psychoactive substance use, unspecified with psychoactive substance-induced mood disorder Status: Acute Assessment & Plan: On psychiatric evaluation today the patient denies symptoms of depression, anxiety, miriam and psychosis. Patient denies suicidal and homicidal ideation, he denies visual and auditory hallucinations. Patient reports that he is motivated to be transferred to detox for alcoholism. He does not meet criteria for involuntary psychiatric admission at this moment. Extensive support, motivation and psychoeducation provided. Flaherty act will be lifted. Assessment & Plan Estimated LOS: days Fito Li MD Dec 18, 2017 15:28
--- NOTE | 2017-12-18 16:28 | EKG ---
Date Performed: 12/17/2017 Time Performed: 16:52:09 PTAGE: 37 years EKG: Sinus rhythm POSSIBLE LEFT VENTRICULAR HYPERTROPHY NONSPECIFIC T-WAVE ABNORMALITY ABNORMAL ECG PREVIOUS TRACING : 10/12/2017 00.08 Since the previous tracing, no significant change noted DOCTOR: Noman Mcknight Interpretating Date/Time 12/18/2017 16:25:05
== END 2017-12-18 10:34 ==
LOC: NEPE 15:35
DX: F10.10 Alcohol abuse, uncomplicated (principal); F14.10 Cocaine abuse, uncomplicated; R45.851 Suicidal ideations; R94.31 Abnormal electrocardiogram [ECG] [EKG]; F41.9 Anxiety disorder, unspecified; Z72.0 Tobacco use
CPT/HCPCS: 71045; 80053; 80307; 83735; 85025; 93005; 96361; 96374; 99285; J2060; J7030

== ENCOUNTER 2018-01-02 20:28 | Emergency (ER) | payer SELFPAY ==
[~2018-01-02] VITALS: Ht 177.8 cm; Wt 75.0 kg
[2018-01-02 20:37] VITALS: BP 131/76; PULSE 89; RESP 20; TEMP 98.9; O2SAT 100
[2018-01-02] MEDS ORDERED: IBUP-232 PO (21:25)
[2018-01-02] MEDS ORDERED: IBUPROFEN 600 MG TAB PO ONE (21:30)
--- NOTE | 2018-01-02 21:31 | PD ---
HPI Chief Complaint: Alcohol/Drug Intoxication Time Seen by Provider: 21:11 Travel History International Travel<30 days: No Contact w/Intl Traveler<30days: No Traveled to known affect area: No History of Present Illness HPI 37-year-old white male presents emergency department requesting evaluation of general fatigue and malaise. He states that his been feeling poorly over the last several days. He has had some headache, sore throat, difficulty swallowing , myalgias, arthralgias and general malaise. He does admit to consuming alcohol today. He does state that he is homeless and has nowhere to go. He also states that he suffers from anxiety and does not take any medications. He does not have a psychiatrist. He is not acutely suicidal homicidal. Patient denies any fever chills. No ear pain, cough, shortness of breath, nausea, vomiting, abdominal pain or urinary symptoms. PFSH Past Medical History Anxiety: Yes Depression: Yes Cancer: No Cardiovascular Problems: No Cirrhosis: Yes Diabetes: No Diminished Hearing: No Endocrine: No Gastrointestinal Disorders: Yes Genitourinary: No Headaches: Yes Hepatitis: Yes (B & C) Immune Disorder: No Musculoskeletal: Yes Neurologic: Yes Psychiatric: Yes Reproductive: No Respiratory: No Immunizations Current: Yes Migraines: Yes Past Surgical History Other Surgery: No Social History Alcohol Use: Yes (drinks everyday, normally a 4 pk but drank a Hurricane today (01/02/18)) Tobacco Use: Yes (1PPD) Substance Use: Yes (Crack/Cocaine/marijuana) Allergies-Medications (Allergen,Severity, Reaction): Coded Allergies: penicillin G (Verified Allergy, Severe, Hives, 12/17/17) morphine (Verified Allergy, Intermediate, Nausea/Vomiting, 12/17/17) codeine (Verified Adverse Reaction, Severe, N/V, 12/17/17) Reported Meds & Prescriptions Reported Meds & Active Scripts Active Folic Acid 1 Mg Tablet 1 Mg PO DAILY Gnp Vitamin B-1 (Thiamine HCl) 100 Mg Tab 100 Mg PO DAILY Review of Systems Except as stated in HPI: all other systems reviewed are Neg Physical Exam Narrative GENERAL: Well-developed, well-nourished in no apparent distress. Nontoxic appearing. HEAD: Normocephalic, atraumatic. EYES: Pupils equal round and reactive. Extraocular motions intact. No scleral icterus. No injection or drainage. ENT: Nose clear. Throat with mild but no erythema, tonsillar hypertrophy NO exudate. Uvula midline. Airway patent. NECK: Trachea midline. Supple, nontender, moves head freely. No central bony tenderness or spasm. CARDIOVASCULAR: Regular rate and rhythm without murmurs, gallops, or rubs. RESPIRATORY: Clear to auscultation. Breath sounds equal bilaterally. No wheezes , rales, or rhonchi. GASTROINTESTINAL: Abdomen soft, non-tender, nondistended. No hepato-splenomegaly , or palpable masses. No guarding. EXTREMITIES: No clubbing, cyanosis, or edema. No joint tenderness. BACK: Nontender without deformity. No flank tenderness. NEUROLOGICAL: Awake, alert and oriented x 3 .Cranial nerves grossly intact. Motor and sensory grossly within normal limits. Normal speech. Data Data Last Documented VS Vital Signs Date Time Temp Pulse Resp B/P (MAP) Pulse Ox O2 Delivery O2 Flow Rate FiO2 01/02/18 20:37 98.9 89 20 131/76 (94) 100 Orders Orders Ed Discharge Order (01/02/18 21:24) Ibuprofen (Motrin) (01/02/18 21:30) MDM Medical Decision Making Medical Screen Exam Complete: Yes Emergency Medical Condition: Yes Medical Record Reviewed: Yes Differential Diagnosis Differential diagnosis: Influenza, viral syndrome, pharyngitis, strep throat, anxiety, depression, homelessness, substance abuse, malingering Narrative Course The patient is given Motrin 600 mg p.o. He has eaten several packages of crackers and drink Gatorade. I see no emergent condition that needs evaluation here in the ER today. I reviewed his medical record from last month. He had a complete workup including CBC, chemistry, UA and tox screen. This is fatigue, homelessness, substance abuse Diagnosis Primary Impression: Fatigue Additional Impressions: Homelessness Substance abuse Patient Instructions: General Instructions Additional Instructions: Rest. Increase fluids. Ibuprofen. [facility] with [facility]. Follow-up with [facility]. Avoid alcohol and drugs. Med/Other Pt SpecificInfo: Prescription(s) given Scripts Ibuprofen (Ibuprofen) 600 Mg Tab 600 MG PO Q8H Y for PAIN for 7 Days, #21 TAB 0 Refills Prov: Shanae Gonzalez DO 01/02/18 Disposition: 01 DISCHARGE HOME Condition: Stable Jamel Pennington January 02, 2018 21:31
== END 2018-01-02 22:12 | disposition home or self-care (01) ==
LOC: NEPD 20:28
DX: R53.83 Other fatigue (principal); F19.10 Other psychoactive substance abuse, uncomplicated; F17.200 Nicotine dependence, unspecified, uncomplicated; Z59.0 Homelessness
CPT/HCPCS: 99283

== ENCOUNTER 2018-01-29 00:55 | Emergency (ER) | payer OTHER ==
[~2018-01-29 00:55] MED LIST changes: -FOLI1TAB6 PO; +IBUP-232 PO; -THIA100 PO
[2018-01-29 01:31] VITALS: BP 117/75; PULSE 88; RESP 18; TEMP 97.5; O2SAT 98
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
[2018-01-29] MEDS ORDERED: LORazepam 2 MG/ML VIAL IM ONE (02:15)
[2018-01-29 02:22] LABS: BASOPHIL # 0.1 TH/MM3 (0-0.2); BASOPHIL % 1.1 % (0.0-2.0); EOSINOPHIL # 0.3 TH/MM3 (0-0.4); EOSINOPHIL % 3.7 % (0.0-4.0); HEMATOCRIT 41.8 % (39.0-51.0); HEMOGLOBIN 13.3 GM/DL (13.0-17.0); LYMPH % 31.4 % (9.0-44.0); LYMPHOCYTE # 2.3 TH/MM3 (1.0-4.8); MEAN CELL VOLUME 66.8 FL (80.0-100.0); MEAN CORPUSCULAR HEMOGLOBIN 21.3 PG (27.0-34.0); MEAN CORPUSCULAR HGB CONC 31.8 % (32.0-36.0); MEAN PLATELET VOLUME 9.3 FL (7.0-11.0); MONO % 8.6 % (0.0-8.0); MONOCYTE # 0.6 TH/MM3 (0-0.9); NEUT % 55.2 % (16.0-70.0); PLATELET COUNT 211 TH/MM3 (150-450); RED BLOOD COUNT 6.25 MIL/MM3 (4.50-5.90); RED CELL DISTRIBUTION WIDTH 16.1 % (11.6-17.2); WHITE BLOOD COUNT 7.2 TH/MM3 (4.0-11.0)
[2018-01-29 02:50] LABS: ALBUMIN 3.9 GM/DL (3.4-5.0); ALT (GPT) 24 U/L (12-78); AST (GOT) 25 U/L (15-37); BICARBONATE 23.7 MEQ/L (21.0-32.0); BLOOD UREA NITROGEN 11 MG/DL (7-18); CALCIUM 8.5 MG/DL (8.5-10.1); CHLORIDE 108 MEQ/L (98-107); CREATININE 0.89 MG/DL (0.60-1.30); GLOMERULAR FILTRATION RATE 97 ML/MIN (>89); GLUCOSE,RANDOM 92 MG/DL (74-106); SODIUM (NA) 143 MEQ/L (136-145)
[2018-01-29 02:59] LABS: ALKALINE PHOSPHATASE 59 U/L (45-117); TOTAL BILIRUBIN ADULT 0.8 MG/DL (0.2-1.0); TOTAL PROTEIN 7.5 GM/DL (6.4-8.2)
[2018-01-29 09:01] VITALS: BP 109/72; PULSE 79; RESP 17; O2SAT 99
[2018-01-29 14:10] VITALS: BP 126/60; PULSE 83; RESP 18; TEMP 99.4; O2SAT 99
[2018-01-29 17:46] VITALS: BP 128/67; PULSE 71; RESP 20; O2SAT 98
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
== END 2018-01-29 19:31 | disposition home or self-care (01) ==
LOC: NEPD 00:55 → NEPJ 19:31
DX: F10.129 Alcohol abuse with intoxication, unspecified (principal); Y90.8 Blood alcohol level of 240 mg/100 ml or more; F41.9 Anxiety disorder, unspecified; F32.9 Major depressive disorder, single episode, unspecified; K74.60 Unspecified cirrhosis of liver; F17.200 Nicotine dependence, unspecified, uncomplicated; Z86.19 Personal history of other infectious and parasitic diseases; Z59.0 Homelessness; Z88.0 Allergy status to penicillin
CPT/HCPCS: 80053; 80307; 84443; 85025; 96372; 99284; J2060

== ENCOUNTER 2018-01-31 03:04 | Emergency (ER) | payer SELFPAY ==
[2018-01-31 03:18] VITALS: BP 131/61; PULSE 79; RESP 14; O2SAT 100
[2018-01-31] MEDS ORDERED: LORazepam 2 MG/ML VIAL IM ONE (03:30)
[2018-01-31] MEDS ORDERED: diphenhydrAMINE HCL 50 MG/ML VIAL IV PUSH ONE (03:30)
[2018-01-31] MEDS ORDERED: HALOPERIDOL LACTATE 5 MG/ML AMP IV PUSH ONE (03:30)
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
[2018-01-31 07:15] VITALS: BP 105/52; PULSE 70; RESP 16; O2SAT 100
[2018-01-31 09:51] LABS: AUTOMATED NEUTROPHIL # 3.7 TH/MM3 (1.8-7.7); BASOPHIL # 0.1 TH/MM3 (0-0.2); BASOPHIL % 1.1 % (0.0-2.0); EOSINOPHIL # 0.3 TH/MM3 (0-0.4); HEMOGLOBIN 13.5 GM/DL (13.0-17.0); LYMPH % 27.8 % (9.0-44.0); LYMPHOCYTE # 1.8 TH/MM3 (1.0-4.8); MEAN CELL VOLUME 68.4 FL (80.0-100.0); MEAN CORPUSCULAR HEMOGLOBIN 21.5 PG (27.0-34.0); MEAN CORPUSCULAR HGB CONC 31.4 % (32.0-36.0); MEAN PLATELET VOLUME 8.8 FL (7.0-11.0); MONO % 9.1 % (0.0-8.0); MONOCYTE # 0.6 TH/MM3 (0-0.9); PLATELET COUNT 195 TH/MM3 (150-450); RED BLOOD COUNT 6.29 MIL/MM3 (4.50-5.90); RED CELL DISTRIBUTION WIDTH 16.8 % (11.6-17.2); WHITE BLOOD COUNT 6.6 TH/MM3 (4.0-11.0)
[2018-01-31 10:14] LABS: ALBUMIN 3.4 GM/DL (3.4-5.0); AST (GOT) 33 U/L (15-37); BICARBONATE 23.2 MEQ/L (21.0-32.0); BLOOD UREA NITROGEN 5 MG/DL (7-18); CALCIUM 8.4 MG/DL (8.5-10.1); CHLORIDE 110 MEQ/L (98-107); CREATININE 0.69 MG/DL (0.60-1.30); GLOMERULAR FILTRATION RATE 130 ML/MIN (>89); GLUCOSE,RANDOM 85 MG/DL (74-106); SODIUM (NA) 145 MEQ/L (136-145)
[2018-01-31 10:15] LABS: ALT (GPT) 26 U/L (12-78)
[2018-01-31 10:25] LABS: ALKALINE PHOSPHATASE 52 U/L (45-117); TOTAL BILIRUBIN ADULT 0.6 MG/DL (0.2-1.0); TOTAL PROTEIN 6.9 GM/DL (6.4-8.2)
[2018-01-31 14:35] VITALS: BP 118/57; PULSE 59; RESP 20; TEMP 98.8; O2SAT 99
[2018-01-31 18:28] VITALS: BP 134/75; PULSE 92; RESP 20; O2SAT 99
[2018-01-31 22:30] VITALS: BP 126/64; PULSE 66; RESP 18; TEMP 98.1; O2SAT 99
[2018-02-01 02:46] VITALS: BP 138/66; PULSE 62; RESP 18; TEMP 98.6; O2SAT 98
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
--- NOTE | 2018-02-01 08:55 | PD ---
Physical Exam Time Seen by Provider: 08:54 Narrative Please refer to previous providers documentation for details surrounding the patient's current visit. Data Data Last Documented VS Vital Signs Date Time Temp Pulse Resp B/P (MAP) Pulse Ox O2 Delivery O2 Flow Rate FiO2 02/01/18 02:46 98.6 62 18 138/66 (90) 98 Room Air 01/31/18 03:18 2.00 Orders Orders Haloperidol Inj (Haldol Inj) (01/31/18 03:30) Diphenhydramine Inj (Benadryl Inj) (01/31/18 03:30) Lorazepam Inj (Ativan Inj) (01/31/18 03:30) Diet As Tolerated (01/31/18 08:21) Psych Screen (01/31/18 08:53) Complete Blood Count With Diff (01/31/18 08:54) Comprehensive Metabolic Panel (01/31/18 08:54) Thyroid Stimulating Hormone (01/31/18 08:54) Drug Screen, Random Urine (01/31/18 08:54) Alcohol (Ethanol) (01/31/18 08:54) Diet Regular Basic (01/31/18 Dinner) Diet Regular Basic (02/01/18 Breakfast) Ed Discharge Order (02/01/18 08:52) Labs Laboratory Tests Test 01/31/18 09:30 01/31/18 11:20 White Blood Count 6.6 TH/MM3 Red Blood Count 6.29 MIL/MM3 Hemoglobin 13.5 GM/DL Hematocrit 43.0 % Mean Corpuscular Volume 68.4 FL Mean Corpuscular Hemoglobin 21.5 PG Mean Corpuscular Hemoglobin Concent 31.4 % Red Cell Distribution Width 16.8 % Platelet Count 195 TH/MM3 Mean Platelet Volume 8.8 FL Neutrophils (%) (Auto) 57.0 % Lymphocytes (%) (Auto) 27.8 % Monocytes (%) (Auto) 9.1 % Eosinophils (%) (Auto) 5.0 % Basophils (%) (Auto) 1.1 % Neutrophils # (Auto) 3.7 TH/MM3 Lymphocytes # (Auto) 1.8 TH/MM3 Monocytes # (Auto) 0.6 TH/MM3 Eosinophils # (Auto) 0.3 TH/MM3 Basophils # (Auto) 0.1 TH/MM3 CBC Comment DIFF FINAL Differential Comment Blood Urea Nitrogen 5 MG/DL Creatinine 0.69 MG/DL Random Glucose 85 MG/DL Total Protein 6.9 GM/DL Albumin 3.4 GM/DL Calcium Level 8.4 MG/DL Alkaline Phosphatase 52 U/L Aspartate Amino Transf (AST/SGOT) 33 U/L Alanine Aminotransferase (ALT/SGPT) 26 U/L Total Bilirubin 0.6 MG/DL Sodium Level 145 MEQ/L Potassium Level 4.4 MEQ/L Chloride Level 110 MEQ/L Carbon Dioxide Level 23.2 MEQ/L Anion Gap 12 MEQ/L Estimat Glomerular Filtration Rate 130 ML/MIN Thyroid Stimulating Hormone 3rd Gen 1.000 uIU/ML Ethyl Alcohol Level 167 MG/DL Urine Opiates Screen NEG Urine Barbiturates Screen NEG Urine Amphetamines Screen NEG Urine Benzodiazepines Screen NEG Urine Cocaine Screen NEG Urine Cannabinoids Screen NEG MDM Medical Record Reviewed: Yes Supervised Visit with LEONEL: No Narrative Course Patient has been seen and evaluated by medical staff, psychiatry is also evaluated the patient. Flaherty act as lifted. He will be discharged home with at this time. Diagnosis Primary Impression: Adjustment disorder with mixed disturbance of emotions and conduct Disposition: 01 DISCHARGE HOME Condition: Stable Anabela Christianson Feb 01, 2018 08:55
== END 2018-02-01 09:40 | disposition home or self-care (01) ==
LOC: NEPE 03:04 → NEPJ 02-01 09:40
DX: R45.1 Restlessness and agitation (principal); F43.25 Adjustment disorder with mixed disturbance of emotions and conduct; F10.220 Alcohol dependence with intoxication, uncomplicated; Y90.6 Blood alcohol level of 120-199 mg/100 ml; F17.200 Nicotine dependence, unspecified, uncomplicated; Z87.19 Personal history of other diseases of the digestive system; Z86.59 Personal history of other mental and behavioral disorders; Z87.39 Personal history of other diseases of the musculoskeletal system and connective tissue; Z86.69 Personal history of other diseases of the nervous system and sense organs
CPT/HCPCS: 80053; 80307; 84443; 85025; 96372; 96374; 96375; 99284; J1200; J1630; J2060